=== PATIENT | female | born 1940 | race Caucasian/White ===

== ENCOUNTER 2020-06-19 11:31 | Inpatient (IN) | payer MEDICARE, BC, SELFPAY ==
[2020-06-19] VITALS (103 sets, daily range): BP systolic 105–148; BP diastolic 47–99; PULSE 62–75; RESP 14–40; TEMP 36.2–36.6; O2SAT 86–99
--- NOTE | 2020-06-19 11:45 | RT.EKG_ITS ---
APPROVED REPORT Exam: Resting ECG Patient Location: E HR:66 bpm ECG Measurements Heart Rate 66 AXIS NH 152 P 54 QRSd 118 QRS -35 QT 440 T 82 QTc 460 Conclusion Sinus rhythm. Left ventricular hypertrophy Abnormal T waves I aVL No comparisons
--- NOTE | 2020-06-19 11:56 | ED.GENADUL_ITS ---
Discharge Plan Disposition Patient Disposition: [facility] INPATIENT Condition: Improving Discharge Details Clinical Impression: Anemia, RLL pneumonia Primary Care Provider: Jf Bolanos ED Provider: Finesse Carias Home Meds and New Rx's Prescriptions: No Action ibuprofen [Motrin] 100 mg Tablet 600 mg PO PRN PRNRF: 0 Medical Decision Making 80-year-old female presents via EMS complaining of 3 days of worsening tailbone/pelvic pain and generalized weakness with difficulty walking. She has had some improvement with NSAIDs at home. She has not had a fever and states she had normal bowel movement yesterday. She is afebrile and exam does reveal a small ulceration of her coccyx. Rectal vault has soft brown stool that is faintly guaiac positive. 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 The patient's DPOA her daughter Shantelle (#[phone]) states her mother has not had medical care in at least 2 years. Differential diagnosis is broad. Does not appear clinically that the small ulceration of her coccyx would explain her malaise and weakness. Screening labs obtained. Patient is fairly profoundly anemic with a white count of 4, hematocrit 12.7, platelets 139. Sodium 131, potassium 5.7, chloride 104, bicarb 18, BUN 71, creatinine 4.0. LFTs are unremarkable, troponin negative, albumin 2.3. Patient referred for CT of the chest, abdomen, pelvis reveals right pleural effusion with underlying pneumonia of the right lower lobe. Abdomen with mild distention of the gallbladder, otherwise unremarkable for acute process. Patient consented for 2 unit blood transfusion. She is being fluid resuscitated with normal saline. Will initiate antibiotics for walking pneumonia. Question whether her coccyx and pelvic pain may be related to multiple myeloma. Will admit for further management. HPI General Mode of arrival: EMS . Date/Time Provider Initiated Documentation: 06/19/20 11:48 . Limitations to Documentation: no limitations . Information obtained by: patient and EMS . History of Present Illness 80 year old F presents to the emergency department with the chief complaint of Tailbone pain, generalized weakness, difficulty moving, described as moderate, Quality is described as dull and constant, and is localized to the pelvis. Patient reports no radiation. Patient started experiencing this day(s) and it has been constant. Rest improves symptom(s), Movement worsens symptoms . Patient notes loss of appetite; denies fever/chills. Patient did receive the following treatments prior to arrival, NSAID Related Data Home Medications Medication Instructions Recorded Confirmed ibuprofen [Motrin] 600 mg PO PRN PRN 06/19/20 06/19/20 Allergies Allergy/AdvReac Type Severity Reaction Status Date / Time Penicillins Allergy Anaphylaxsi Unverified 06/19/20 12:30 s general anestesia Allergy Anaphylaxsi Uncoded 06/19/20 12:30 s General Stated Complaint: Orthopedic SHAMIKA: 3 Review of Systems Narrative: He denies fever, cough, nausea or vomiting. States she did fall on her tailbone least 2 weeks ago. [facility] Social History Smoking/Tobacco Use Status: Never Smoking risk assessment performed?: Yes Alcohol Intake: never Drug use: Never Do you feel safe at home: Yes Do you feel safe in your relationship?: Yes Exam Narrative Exam Narrative: GEN: awake, alert, oriented 3. Pleasant, well groomed, interactive. HEAD: Normocephalic, atraumatic ENT: Mucous membranes moist, oropharynx unremarkable, External ear exam unremarkable EYES: PERRL, EOMI NECK: Full ROM, no JET, no menigismus CHEST/RESP: Nontender, clear to auscultation bilateral, no wheeze/rhonchi/rales CARDIOVASCULAR: RRR, no murmur, rub porfirio. 2+ Rad pulse bilateral ABDOMEN: Soft, nontender, no mass. +Bowel sounds. There is a small area of shallow ulceration on the patient's coccyx that is tender but without surrounding fluctuance and no erythema. Normal rectal tone, no masses, soft brown stool that is guaiac positive. EXT: Full ROM, no edema, no rash Neuro: Grossly normal neurologic exam, conversant, interactive. Psych: Speech fluent, thoughts congruent, affect normal Course Vital Signs Vital signs: Vital Signs Temperature 36.6 C 06/19/20 11:38 Pulse 75 06/19/20 11:38 Respiratory Rate 18 06/19/20 11:38 Blood Pressure 114/99 H 06/19/20 11:38 Pulse Oximetry 97 06/19/20 11:38 Temperature 36.6 C 06/19/20 11:38 Temperature Source Temporal Artery Scan 06/19/20 11:38 Pulse 75 06/19/20 11:38 Respiratory Rate 18 06/19/20 11:38 Blood Pressure 114/99 H 06/19/20 11:38 Blood Pressure Position Supine 06/19/20 11:38 Pulse Oximetry 97 06/19/20 11:38 Oxygen Delivery Method Room Air 06/19/20 11:38 Oxygen Flow Rate 0 06/19/20 11:38 Pain Level 6 06/19/20 11:38 Comment 06/19/20 11:38
[2020-06-19] MEDS: Normal Saline 1,000 ML 1000 ML IV (12:33)
[2020-06-19 12:34] LABS: Bilirubin Negative (Negative); Blood Trace-intact (Negative); Clarity Clear (Clear); Glucose Negative (Negative); Ketones Negative (Negative); Leukocyte Esterase Negative (Negative); Nitrite Negative (Negative); Specific Gravity 1.025 (1.005-1.025); Urobilinogen 0.2 EU/dL (Up TO 0.2); pH 5.5 (5-8)
[2020-06-19 12:35] LABS: Abs Immature Grans 0.09 10^3/uL (0.0-0.06); Absolute Eosinophil Count 0.02 10^3/uL (0.0-0.7); Absolute Lymphocyte Count 0.56 10^3/uL (1.2-3.4); Absolute Monocyte Count 0.43 10^3/uL (0.1-0.8); Absolute Neutrophil Count 3.12 10^3/uL (1.2-6.7); Eosinophils % 0.5; Immature Grans % 2.1; Lymphocytes % 13.3; MCH 28.2 pg (27.0-33.0); MCHC 29.1 % (32.0-36.0); MCV 96.9 fL (80-95); MPV 9.4 fL (8.0-11.0); Monocytes % 10.2; Neutrophils % 73.9; Nucleated RBC 0 %; Platelet Count 139 10^3/uL (130-400); RBC 1.31 10^6/uL (3.93-5.22); RDW 22.8 % (11.7-14.6); RDW-SD 79.9 fL; WBC 4.22 10^3/uL (4.4-10.8)
[2020-06-19 12:42] LABS: HCT 12.7 % (36.0-46.0); HGB 3.7 g/dL (11.2-15.7)
[2020-06-19 12:49] LABS: Bacteria Few HPF (Negative); C & S Indicated? Yes; Casts 10-20 Hyaline LPF (Negative); Crystals Negative HPF (Negative); Epithelial Cells Few HPF (Negative); Mucus Trace (Negative); RBC 0-2 HPF (0-2)
[2020-06-19 12:55] LABS: Anisocytosis 3+; Diff Comment RBC Morph Reviewed; Hypochromasia 3+
[2020-06-19 13:00] LABS: ALT 47 U/L (14-59); AST 47 U/L (15-37); Albumin 2.3 g/dL (3.4-5.0); Alkaline Phosphatase 71 U/L (46-116); Anion Gap 8.9 mmol/L (3-11); BUN 71 mg/dL (7-18); Bilirubin, Total 0.3 mg/dL (0.2-1.0); CO2 18.1 mmol/L (21.0-32.0); Calcium 8.1 mg/dL (8.5-10.1); Chloride 104 mmol/L (98-107); Estimated GFR 10.72 (mL/min/1.73m2); Glucose 131 mg/dL (74-106); Magnesium 2.6 mg/dL (1.8-2.4); Potassium 5.7 mmol/L (3.5-5.1); Sodium 131 mmol/L (136-145); Total Protein 11.9 g/dL (6.4-8.2)
[2020-06-19 13:01] LABS: Troponin I < 0.05 ng/mL (<0.06)
--- NOTE | 2020-06-19 13:30 | DI.CT_ITS ---
EXAM: CT CHEST/ABD/PEL WO CLINICAL HISTORY: PELVIS, TAILBONE PAIN. TECHNIQUE: Imaging Protocol: Axial computed tomography images with coronal and sagittal reformatted images were created and reviewed CONTRAST MATERIAL: Noncontrast COMPARISON: No exams were available for comparison FINDINGS: The exam is limited by respiratory motion. CHEST: Thyroid: Unremarkable Tracheobronchial tree: Patent where visualized. Mediastinum and Madhuri: No dominant adenopathy or fluid collection. Pulmonary parenchyma: There are increased densities at the right lung base suspicious for pneumonia. Pleura: No pneumothorax. Small right pleural effusion. Lymph nodes: Within normal limits. Heart: Dilated. Mild coronary artery calcifications. Mild aortic calcification. No aortic aneurysm . Bones: The bones appear osteoporotic. There are multiple mid to lower thoracic compression fractures . ABDOMEN: Liver: Normal density. No measurable mass. Gallbladder and biliary tract: The gallbladder appears somewhat distended and there is a question of wall thickening. No radiodense calculus or biliary dilation. Pancreas: Normal density, no abnormal calcifications or inflammatory process. Spleen: Normal. Kidneys: Normal size, contour and axis. No radiodense stones or obstructive uropathy. Bilateral cyst s. No perinephric collection. No suspicious masses seen. Adrenal glands: No masses seen. Aorta: Abdominal portion non-dilated. Lymph nodes: Within normal limits. PELVIS: Bladder: Nearly empty and not well evaluated. Bowel: Extensive diverticulosis. No evidence of diverticulitis. Normal quantity of stool. Normal-a ppearing appendix. No obstruction or bowel wall thickening. Peritoneal cavity: Small amount of fluid is seen in the pelvis. Bones: Bones appear osteoporotic. Moderate compression fracture of L1. Mild compression fracture of L3, both of which appear old. No acute spine or pelvic fractures are seen. Reproductive organs: Status post hysterectomy. IMPRESSION: Small right pleural effusion. Question of right lower lobe pneumonia versus significant atelectasis. Distended gallbladder with question of thickened gallbladder wall. Ultrasound could be performed for further evaluation. Severe diverticulosis without evidence of diverticulitis. RADIATION DOSE DELIVERED: 1,267.99mGy.cm Total DLP DATA REPOSITORY: All CT scans at this facility are submitted to the National Radiology Data Registry (NRDR) Dose Index Registry (DIR) with the [employer] (ACR). RADIATION OPTIMIZATION: All CT scans at this facility use at least one of these dose optimization te chniques: automated exposure control; mA and/or kV adjustment per patient size (includes targeted exa ms where dose is matched to clinical indication); or iterative reconstruction.
--- NOTE | 2020-06-19 16:20 | HPE_ITS ---
Date of service: 06/19/20 Time of Service: 16:20 Assessment and Plan Assessment and plan (1) Anemia: Status: Chronic Assessment and plan: Multifactorial. I suspect that she has a chronic anemia secondary to her multiple myeloma however given her recent use of NSAIDs and slightly heme positive stool she may have some chronic GI bleeding going on. Her last labs were on iron studies and B12 and folate levels off of her admission labs. Patient has consented to blood transfusion she is now on her se cond unit of blood but most likely will need a third unit of packed red cells. I have put her on low-dose Nexium for GI protection. Should get a repeat hemoglobin tonight and if it is less than 7 g she will get another unit of blood. Qualifiers: Anemia type: unspecified type Qualified Code(s): D64.9 - Anemia, unspecified (2) Heme + stool: Status: Acute Assessment and plan: As above. (3) Dehydration: Status: Acute Assessment and plan: Patient received a liter of saline in the emergency department but now has had 2 units of packed red blood cells. She will likely need a third unit of PRBC. I will repeat her BMP in the a.m. (4) Acute kidney injury (nontraumatic): Status: Acute Assessment and plan: secondary to above. repeat BMP and monitor urine oupu t as she is transfused (5) Chronic renal insufficiency: Status: Suspected Assessment and plan: I suspect that she has CKD d/t MM. Will get renal US on Monday. (6) Essential hypertension: Status: Acute Assessment and plan: patient has hx of htn however she has not been on any meds. BP is not a problem now but may rise after transfusion at which time she may need medications for HTN. (7) Multiple myeloma: Status: Acute Assessment and plan: labs ordered for staging of her MM. I am not sure that she is going to want extensive workup. She would need BM biopsy before treatment. Qualifiers: Multiple myeloma remission status: not in remission Qualified Code(s): C90.00 - Multiple myeloma not having achieved remission (8) Atelectasis: Status: Acute Assessment and plan: Dr. Carias listed her dx as walking pneumonia, however the patient does not have a fever, cough, hypoxemia nor purulent sputum. I think her CT is more consistent w/ atelectasis and effusion probably d/t her bed confinement. I am electing to not begin antibiotics unless she becomes febrile. I think early mobilization, good pulmonary exercises i.e. I.S. will help. She is not actively wheezing and therefore does not need bronchodilators. (9) Decubitus ulcer of coccygeal region: Status: Acute Assessment and plan: I think a barrier cream or Mepilex will protect the site. Last wound care nurse to see her in the morning. Early mobilization will help. 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 She presents to the emergency room according to her because of 3-day history of worsening pain over her tailbone. However she is also had gene ralized weakness and difficulty walking and has been previous bedbound for the past week. She has been taken NSAIDs with some improvement in her pain. Patient is a poor historian and is fixated on her history of polio. Patient reportedly has been afebrile and patient reports having had normal bowel movement yesterday. However rectal exam in the emergency department showed soft brown stool that was faintly guaiac positive. Laboratory work-up showed that she was in acute renal failure and severely anemic. CMP demonstrated elevated BUN of 71 and creatinine of 4.0 and an elevated potassium of 5.7. Calcium level is normal at 8.1. Magnesium is high at 2.6. Her anion gap is normal at 8.9. LFTs were within normal limits. Troponin was less than 0.05. Her total protein was high at 11.9 with a low albumin of 2.3. CBC demonstrated profound anemia with a hemoglobin of 3.7 g and hematocrit 12.7%. Her MCV was elevated at 96.9 with an RDW 22.8. Platelet count was normal at 139,000. WBCs were mildly depressed at at 4200. CT imaging of her chest abdomen pelvis without contrast demonstrated small right pleural effusion and questionable right lower lobe pneumonia versus atelectasis. She has a distended gallbladder with questionable thickening of her gallbladder wall. She has severe diverticulosis without diverticulitis. She had no mediastinal or hilar adenopathy. She has mild coronary artery calcifications with no aortic aneurysm. Bones appear to be osteoporotic and she has multiple mid to lower thoracic compression fractures as well as moderate compression fracture L1 and L3 that appear to be old. Bones of the pelvis appear to be osteoporotic but no acute spinal or pelvic fractures were seen. Reproductive organs show she is status post hysterectomy. Dr. Finesse Carias, emergency room physician, discussed her case with her daughter Shantelle at #[phone], who stated that her mother is not had any medical care in the past 2 years. Daughter is her DPOA. Patient did consent to 2 units of blood transfusion. She was given a liter of normal saline in the emergency department for her azotemia. She received 1 unit of blood while in the emergency department and is now starting on her second unit of blood. Is unclear whether her coccygeal pain is secondary to multiple myeloma involvement versus osteoporosis and referred pain from her spinal compression fractures. She does have a small superficial ulceration over the coccyx. Review of Systems Unobtainable due to mental status [facility] Medical History (Updated 06/19/20 @ 18:50 by Chris Corrales) Chronic renal insufficiency Essential hypertension Multiple myeloma Surgical History (Updated 06/19/20 @ 18:28 by Chris Corrales) Status post total hysterectomy and bilateral salpingo-oophorectomy Performed at age 28 for allegedly ovarian cancer Social History Smoking/Tobacco Use Status: Never Smoking risk assessment performed?: Yes Alcohol Intake: never Drug use: Never Do you feel safe at home: Yes Do you feel safe in your relationship?: Yes Meds Home Medications and Allergies Home Medications Medication Instructions Recorded Confirmed Type ibuprofen [Motrin] 600 mg PO PRN PRN 06/19/20 06/19/20 History Allergies Allergy/AdvReac Type Severity Reaction Status Date / Time Penicillins Allergy Anaphylaxsi Unverified 06/19/20 12:30 s general anestesia Allergy Anaphylaxsi Uncoded 06/19/20 12:30 s Exam Narrative Exam Narrative: Elderly female lying in bed in no acute distress. HEENT is remarkable for dry mucous membranes. Neck is supple nontender no JVD normal carotid pulses Lungs are clear anteriorly but posteriorly she has some basilar rales bilaterally right more so than the left. No rhonchi or wheezing. Heart regular rate and rhythm no appreciable murmur rub or gallop. Abdomen soft nondistended normal active bowel sounds. Spine tender over the coccyx. Skin with multiple areas of seborrheic keratosis. Coccyx with a superficial skin ulceration with no purulent drainage. Neuro exam patient seems to be poor historian and perhaps may have some mild dementia or at least mild cognitive impairment. She has no dysarthric speech no facial asymmetry no gross visual field deficits . She has normal range of motion of her hands and arms. She is seems to move her legs well although I did not check strength in her feet. Sensory exam grossly intact to light touch. Results Labs Result diagrams: 06/19/20 12:30 06/19/20 12:30 Labs: Laboratory Results - last 24 hr 06/19/20 06/19/20 06/19/20 12:03 12:03 12:25 WBC Cancelled RBC Cancelled Hgb Cancelled Hct Cancelled MCV Cancelled MCH Cancelled MCHC Cancelled RDW Cancelled Plt Count Cancelled MPV Cancelled Immature Gran % Cancelled Neutrophils % Cancelled Band Neutrophils % Cancelled Lymphocytes % Cancelled Atypical Lymphs % Cancelled Monocytes % Cancelled Eosinophils % Cancelled Basophils % Cancelled Metamyelocytes % Cancelled Myelocytes % Cancelled Promyelocytes % Cancelled Other Cells % Cancelled Nucleated RBC % Cancelled Absolute Neutrophils Cancelled Absolute Lymphocytes Cancelled Absolute Monocytes Cancelled Absolute Eosinophils Cancelled Absolute Basophils Cancelled RBC Morphology Cancelled Polychromasia Cancelled Hypochromasia Cancelled Poikilocytosis Cancelled Basophilic Stippling Cancelled Anisocytosis Cancelled Microcytosis Cancelled Macrocytosis Cancelled Spherocytes Cancelled Tear Drop Cells Cancelled Ovalocytes Cancelled Stomatocytes Cancelled Ryder-Rose Bud Bodies Cancelled [place] Cells/Echinocytes Cancelled Acanthocytes (Spur) Cancelled Schistocytes Cancelled Sodium Cancelled Potassium Cancelled Chloride Cancelled Carbon Dioxide Cancelled Anion Gap Cancelled BUN Cancelled Creatinine Cancelled Estimated GFR/1.73 m2 Cancelled Glucose Cancelled Calcium Cancelled Magnesium Cancelled Total Bilirubin Cancelled AST Cancelled ALT Cancelled Alkaline Phosphatase Cancelled Troponin I Cancelled Total Protein Cancelled Albumin Cancelled Urine Color Yellow Urine Clarity Clear Urine pH 5.5 Ur Specific Prentiss 1.025 Urine Protein 30 H Urine Ketones Negative Urine Blood Trace-intact H Urine Nitrite Negative Urine Bilirubin Negative Urine Urobilinogen 0.2 Ur Leukocyte Esterase Negative Urine RBC 0-2 Urine WBC 10-20 H Ur Epithelial Cells Few Urine Crystals Negative Urine Bacteria Few Urine Casts 10-20 hyaline Urine Mucus Trace Ur Culture Indicated? Yes Urine Glucose Negative Patient ABO/Rh Antibody Screen Crossmatch 06/19/20 06/19/20 06/19/20 12:30 12:30 12:55 WBC 4.22 L RBC 1.31 L Hgb 3.7 L* Hct 12.7 L* MCV 96.9 H MCH 28.2 MCHC 29.1 L RDW 22.8 H Plt Count 139 MPV 9.4 Immature Gran % 2.1 Neutrophils % 73.9 Band Neutrophils % Lymphocytes % 13.3 Atypical Lymphs % Monocytes % 10.2 Eosinophils % 0.5 Basophils % 0.0 Metamyelocytes % Myelocytes % Promyelocytes % Other Cells % Nucleated RBC % 0 Absolute Neutrophils 3.12 Absolute Lymphocytes 0.56 L Absolute Monocytes 0.43 Absolute Eosinophils 0.02 Absolute Basophils 0.00 RBC Morphology See below Polychromasia Hypochromasia 3+ Poikilocytosis Basophilic Stippling Anisocytosis 3+ Microcytosis Macrocytosis Spherocytes Tear Drop Cells Ovalocytes Stomatocytes Ryder-Rose Bud Bodies Catarina Cells/Echinocytes Acanthocytes (Spur) Schistocytes Sodium 131 L Potassium 5.7 H Chloride 104 Carbon Dioxide 18.1 L Anion Gap 8.9 BUN 71 H Creatinine 4.00 H* Estimated GFR/1.73 m2 10.72 Glucose 131 H Calcium 8.1 L Magnesium 2.6 H Total Bilirubin 0.3 AST 47 H ALT 47 Alkaline Phosphatase 71 Troponin I < 0.05 Total Protein 11.9 H Albumin 2.3 L Urine Color Urine Clarity Urine pH Ur Specific Prentiss Urine Protein Urine Ketones Urine Blood Urine Nitrite Urine Bilirubin Urine Urobilinogen Ur Leukocyte Esterase Urine RBC Urine WBC Ur Epithelial Cells Urine Crystals Urine Bacteria Urine Casts Urine Mucus Ur Culture Indicated? Urine Glucose Patient ABO/Rh O Positive Antibody Screen Negative Crossmatch See Detail Last Vital Signs Temp 36.6 C 06/19/20 15:15 Pulse 69 06/19/20 15:33 Resp 19 06/19/20 15:40 BP 139/74 06/19/20 15:33 Pulse Ox 94 06/19/20 15:40 COVID-19 Screening Have you, or household traveled for leisure in last 14 days?: No Had IN PERSON contact w/suspected or confirmed C-19 person: No
[2020-06-19] MEDS: Normal Saline Flush 10 ML SYR IVP ×3 (18:14→23:55)
[2020-06-19 21:39] LABS: HCT 18.7 % (36.0-46.0)
[2020-06-19 23:08] LABS: Iron 458 ug/dL (50-170)
[2020-06-19 23:34] LABS: Ferritin 548 ng/mL (8-252); Folate 11.6 ng/mL (8.6-20.0); Vitamin B12 220 pg/mL (193-986)
[2020-06-19] MEDS: Normal Saline 1,000 ML 30 ML IV (23:58)
[2020-06-20] VITALS (38 sets, daily range): BP systolic 106–136; BP diastolic 50–66; PULSE 0–79; RESP 11–33; TEMP 36.1–36.6; O2SAT 78–96
[2020-06-20 02:13] LABS: COVID-19 RT-PCR UVMMC Result Negative (Negative)
[2020-06-20 07:04] LABS: Abs Immature Grans 0.03 10^3/uL (0.0-0.06); Absolute Eosinophil Count 0.03 10^3/uL (0.0-0.7); Absolute Lymphocyte Count 0.41 10^3/uL (1.2-3.4); Absolute Monocyte Count 0.49 10^3/uL (0.1-0.8); Absolute Neutrophil Count 2.84 10^3/uL (1.2-6.7); Eosinophils % 0.8; Immature Grans % 0.8; Lymphocytes % 10.8; MCH 28.1 pg (27.0-33.0); MCHC 31.6 % (32.0-36.0); MCV 89.2 fL (80-95); MPV 9.4 fL (8.0-11.0); Monocytes % 12.9; Neutrophils % 74.7; Nucleated RBC 1 %; Platelet Count 133 10^3/uL (130-400); RBC 2.31 10^6/uL (3.93-5.22); RDW 22.2 % (11.7-14.6); RDW-SD 69.3 fL
[2020-06-20 07:22] LABS: Anion Gap 8.2 mmol/L (3-11); BUN 70 mg/dL (7-18); CO2 17.8 mmol/L (21.0-32.0); CREATININE 3.47 mg/dL (0.55-1.02); Chloride 108 mmol/L (98-107); Estimated GFR 12.63 (mL/min/1.73m2); Glucose 89 mg/dL (74-106); LDH 208 U/L (81-234); Sodium 134 mmol/L (136-145)
[2020-06-20 07:32] LABS: HGB 6.5 g/dL (11.2-15.7)
[2020-06-20 07:33] LABS: Anisocytosis 2+; Diff Comment RBC Morph Reviewed; HCT 20.6 % (36.0-46.0)
[2020-06-20 07:34] LABS: Hypochromasia 1+; Polychromasia Present
[2020-06-20] MEDS: Esomeprazole 20 MG CAPCR PO (08:19)
[2020-06-20] MEDS: Docusate Sodium 100 MG CAP PO (11:16)
[2020-06-20] MEDS: traMADol 50 MG TAB 25 MG PO (11:17)
--- NOTE | 2020-06-20 12:37 | PT.INIE ---
Date of service: 06/20/20 Time of Service: 12:00 PT Notes Visit Reasons: SEVERE ANEMIA, TRACY ON CKD, MM Inpatient Physical Therapy Evaluation Date: 06/20/2020 Referring Doctor: Chris Corrales MD PT Orders: PT CONSULT: eval and treat Precautions: Fall, standard Patient Profile/Admitting Diagnosis: Patient presented to [facility] ER on 06/19/2020, with complaint of severe coccygeal and tailbone pain and been immobile x2 weeks, bed ridden due to progressive weakness. Medical work-up suggest anemia, post polio syndrome, kidney disease/failure, coccygeal ulcer, and mulitple myoloma. She has become very deconditioned and now non-functional. She has not had medical care for 2 years. PMHX: Medical History (Updated 06/19/20 @ 18:50 by Chris Corrales) Chronic renal insufficiency Essential hypertension Multiple myeloma Surgical History (Updated 06/19/20 @ 18:28 by Chris Corrales) Status post total hysterectomy and bilateral salpingo-oophorectomy Performed at age 28 for allegedly ovarian cancer Social History/Home Situation: Patient reporting that she lives in a private home, with her . She is unclear on the way out of her home. She explains that normally she would need some assist to transfer from her bed to standing a walker, and then she would reside in a chair all day. Approximately 2 weeks ago, her was unable to lift her out of her chair due to her weak condition, she has been bedridden x2 weeks. Current Functional Limitations: Max assist for all bed mobility, mod assist of 1 for supine to sit, mod assist of 1 sit to supine, unable to stand or ambulate due to weakness Equipment Owned/DME: Walker, otherwise patient unclear. Poor historian. Subjective: Patient reporting that she had been immobile for 2 weeks due to her weakness. Has no response when questioned why she did not present to hospital earlier. Her and 1 time was able to transfer her so she could sit in her chair all day, leaving her bedroom, but she got too weak and he was unable to lift her. She states that she suffers from a lot of pain related to her post polio syndrome, but her degree of weakness bothers her more than her pain. Does have coccygeal pain Objective: General Observation: Lying in bed, head of bed 45 degree angle. Lee, bilateral IVs with blood transfusion, O2 via nasal cannula 2 L Mental Status: Confused on day of the week, knows her year and location. She answers all questions clearly and cognitively Pain: 9/10, coccyx region. Currently being treated for pressure ulcer, managed by nursing. Vital Signs: BP 125/54, HR 95, O2 sat ranging 93 to 94% on 2 L of O2 ROM: Right Upper Extremity: Actively achieving about 100 degrees of bilateral shoulder flexion and scaption, passively increases to 120 degrees, elbows and wrist digits are WNL Left Upper Extremity: As above Right Lower Extremity: Bilateral hip flexion 100 degrees to 90 degrees, IR 10 degrees at the hip 30 degrees ER at the hips. Ankles are grossly WNL, bilateral hip abduction about 30 degrees Left Lower Extremity: As above Strength: Right Upper Extremity: Grossly 3+/5 throughout Left Upper Extremity: Grossly 3+/5 throughout Right Lower Extremity: Grossly 2/5 throughout, with the exception of quad it 3/5 lacking about 20 degrees of terminal knee extension due to fatigue. Dorsiflexion plantarflexion 3 -/5 Left Lower Extremity: As above Sensation: Intact Bed Mobility/Transfers: Mod assist x1 from supine to sit bed, 45 degree HOB Mod assist x1 from sit to supine Max assist of 2 for bed mobility Unable to attempt sit to stand due to weakness Gait: Unable due to weakness Balance: Static Sitting: Poor Dynamic Sitting: Poor Static Standing: Poor Dynamic Standing: Poor Special Tests: Mobility Limitations Standardized Measure [facility] AM-PAC 6 clicks Basic Mobility Inpatient Short Form: 100% disability Informed Consent/Education: Patient instructed in purpose of PT consult and plan of care. Assessment: Patient is a 80 year old female referred to physical therapy services with the diagnosis of anemia in the setting of chronic multiple myeloma, post polio syndrome, unmanaged medical care, coccygeal ulcer, kidney dysfunction. Patient presents with clinical signs and symptoms consistent with referred diagnosis allowing for global weakness and deconditioning limiting her functional capabilities that dependent on another for all bed mobility, transfers, and unable to attempt any type of standing or ambulation due to her severe weakness. AMPAC score 100%. She requires skilled PT intervention to improve her overall strength in hopes of improving her functional capabilities requiring less assistance, and hopefully returning her to her home environment. However, length of treatment will likely require SNF to achieve safe level of strength and conditioning to function more independently Patient is assessed as a High 04752 complexity based on the following: History: See comorbidities Examination: See impairments and functional rotations as outlined in assessment Presentation: Unstable Decision Making: Hard Goals: Goals X1 week 1. Supine-Sit close supervision, HOB 30 degrees 2. Sit-Supine close supervision 3. Sit-Stand min assist x1, RW 4. Stand-Sit min assist x1, RW 5. Bed-Chair min assist x1, RW 6. Chair-Bed min assist x1, RW 7. Gait 5 steps, RW, contact-guard 8. Independent with home exercise program 9. Balance good with static phase, fair with dynamic tasks with W for weightbearing activities Plan of Care/Treatment Plan: 1-2x/day, 7 days/week x 1 week. Plan of care has been reviewed with the CAMP COORDINATOR providing the service under Physical Therapy direction. Initiate Physical Therapy intervention for strengthening, bed mobility, transfers, gait, stairs, balance training, use of assistive device. DISCHARGE RECOMMENDATIONS: SNF TREATMENT CODE/TIME: 30 min, [id number]
--- NOTE | 2020-06-20 13:12 | W.PM.PROGNOT ---
Date of Service Date of service: 06/20/20 Time of Service: 13:13 Assessment and Plan Assessment and plan (1) Decubitus ulcer of coccygeal region: Status: Acute Assessment and plan: Wound care following. Qualifiers: Pressure injury stage: stage 1 Qualified Code(s): L89.151 - Pressure ulcer of sacral region, stage 1 (2) [id number] kidney injury: Status: Acute Assessment and plan: Creatinine mildly improved from 4.0 to 3.4. IV NS at 75ml/hr. Monitor (3) Essential hypertension: Status: Acute Assessment and plan: Well controlled. No current meds. (4) Multiple myeloma: Status: Acute Assessment and plan: SPEP/UPEP ordered. LDH 208; normal. Hold previously ordered bone scan. Pt doesn't believe she could tolerate this. She is not keen on any further current w/u but will f/u as outpt with [facility] heme/onc. Qualifiers: Multiple myeloma remission status: not in remission Qualified Code(s): C90.00 - Multiple myeloma not having achieved remission (5) Anemia: Status: Chronic Assessment and plan: Heme + stool. GI loss and likely bone marrow infussiciency. WBC also low. Platelets low normal. Not iron deficient. After 3 units RBCs her Hgb improved from 3.7 to 6.5. 4th unit of RBCs infusing; H/H pending after infusion completed. Monitor. Qualifiers: Anemia type: unspecified type Qualified Code(s): D64.9 - Anemia, unspecified Subjective Subjective Patient reports: no new complaints, still having pain (hips/pelvis with movement in bed.), tolerating a regular diet, shortness of breath and afebrile; denies nausea and vomiting Interval history since last seen: Feels generally weak. Exam Const General: cooperative and no acute distress Nutritional Appearance: overweight Orientation: alert and oriented x3 Resp Effort & Inspection: normal respiratory effort Auscultation: clear to auscultation bilaterally Cardio Rate: regular rate Rhythm: regular rhythm Heart Sounds: S1 normal and S2 normal GI Palpation: soft and nontender Auscultation: normal bowel sounds Skin Lesions: lesion noted (coccyx; Mepilex in place) Extrem General: no calf tenderness and edema Laterality: bilateral (Nonpitting) Objective Last Vital Signs Temp 36.5 C 06/20/20 11:11 Pulse 74 06/20/20 11:11 Resp 21 06/20/20 11:11 BP 125/54 L 06/20/20 11:11 Pulse Ox 93 06/20/20 11:11 Laboratory Results - last 24 hr 06/19/20 06/19/20 06/19/20 12:30 12:30 12:55 WBC RBC Hgb Hct MCV MCH MCHC RDW Plt Count MPV Immature Gran % Neutrophils % Lymphocytes % Monocytes % Eosinophils % Basophils % Nucleated RBC % Absolute Neutrophils Absolute Lymphocytes Absolute Monocytes Absolute Eosinophils Absolute Basophils RBC Morphology Polychromasia Hypochromasia Anisocytosis Sodium Potassium Chloride Carbon Dioxide Anion Gap BUN Creatinine Estimated GFR/1.73 m2 Glucose Uric Acid Calcium Iron 458 H Ferritin 548 H Lactate Dehydrogenase Vitamin B12 220 Folate 11.6 SARS-CoV-2 (PCR) Nasopharyn COVID-19 PCR Ref Test Perform Site Patient ABO/Rh O Positive Antibody Screen Negative Crossmatch See Detail 06/19/20 06/19/20 06/20/20 15:15 21:20 06:35 WBC RBC Hgb 6.0 L* D Hct 18.7 L* D MCV MCH MCHC RDW Plt Count MPV Immature Gran % Neutrophils % Lymphocytes % Monocytes % Eosinophils % Basophils % Nucleated RBC % Absolute Neutrophils Absolute Lymphocytes Absolute Monocytes Absolute Eosinophils Absolute Basophils RBC Morphology Polychromasia Hypochromasia Anisocytosis Sodium 134 L Potassium 5.0 Chloride 108 H Carbon Dioxide 17.8 L Anion Gap 8.2 BUN 70 H Creatinine 3.47 H Estimated GFR/1.73 m2 12.63 Glucose 89 Uric Acid 12.0 H Calcium 8.0 L Iron Ferritin Lactate Dehydrogenase 208 Vitamin B12 Folate SARS-CoV-2 (PCR) Negative Nasopharyn COVID-19 PCR Not Applicable Ref Test Perform Site [facility] lab Patient ABO/Rh Antibody Screen Crossmatch 06/20/20 06:35 WBC 3.80 L RBC 2.31 L Hgb 6.5 L* Hct 20.6 L* MCV 89.2 D MCH 28.1 MCHC 31.6 L RDW 22.2 H Plt Count 133 MPV 9.4 Immature Gran % 0.8 Neutrophils % 74.7 Lymphocytes % 10.8 Monocytes % 12.9 Eosinophils % 0.8 Basophils % 0.0 Nucleated RBC % 1 Absolute Neutrophils 2.84 Absolute Lymphocytes 0.41 L Absolute Monocytes 0.49 Absolute Eosinophils 0.03 Absolute Basophils 0.00 RBC Morphology See below Polychromasia Present Hypochromasia 1+ Anisocytosis 2+ Sodium Potassium Chloride Carbon Dioxide Anion Gap BUN Creatinine Estimated GFR/1.73 m2 Glucose Uric Acid Calcium Iron Ferritin Lactate Dehydrogenase Vitamin B12 Folate SARS-CoV-2 (PCR) Nasopharyn COVID-19 PCR Ref Test Perform Site Patient ABO/Rh Antibody Screen Crossmatch
--- NOTE | 2020-06-20 14:04 | PDOC.CMIN ---
- If Service Date Differs Date of service: 06/20/20 Time of Service: 14:04 Care Management Initial Assess REASON FOR HOSPITALIZATION:: Severe Anemia, TRACY and CKD and Multiple Myoloma PAST MEDICAL HISTORY/PAST SURGICAL HISTORY:: Chronic renal insufficiency. Essential hypertension. Multiple myeloma. Surgical History (Updated 06/19/20 @ 18:28 by Chris Corrales). Status post total hysterectomy and bilateral salpingo-oophorectomy. Performed at age 28 for allegedly ovarian cancer PREVIOUS FUNCTIONAL STATUS/SOCIAL/FAMILY SUPPORTS:: Meghana lives with her spouse and her youngest daughter who provide her care at home. CURRENT FUNCTIONAL STATUS:: Meghana is alert and engaged with CM, she is short of breath during assessment. She states she is not willing to go to a rehab faciility she states her youngest daughter cares for her at home and is working from home to be able to continue to support her. She does think that she will need new home health services for PT and OT. ADVANCE DIRECTIVES:: CM unable to find any on file, will offer patient to complete when she is more medically stable Has patient been provided with info about the portal/API?: No Did the patient sign up for the portal?: No CODE STATUS:: DNI INSURANCE COVERAGE / FINANCIAL ISSUES:: Medicare and BCBS CURRENT HOME/COMMUNITY SERVICES/EQUIPMENT:: Pateint reports no current servcies CM will verify assessment with family due to patients difficulty with shortness of breath during assessment. PRIMARY CARE PHYSICIAN:: POTENTIAL DISCHARGE NEEDS:: New referral to home health including nursing, PT and OT. PATIENT/FAMILY EDUCATION NEEDS:: Discharge edcuation, limitations and follow up plan of care. TRANSPORTATION:: Via private car with family. PLAN:: Meghana disposition to be determined. PT is recomending a skilled level of care prior to returning home, however at this point she declines. Wound consult today. Meghana will need new home health for nursing, PT and OT. CM to continue to assess needs for discharge and coordination disposition.
--- NOTE | 2020-06-20 14:09 | WOUNDCONS ---
- If Service Date Differs Date of service: 06/20/20 Time of Service: 13:30 Wound Initial Evaluation Narrative: Patient is an 80 yof patient who is seen here for weakness and anemia, after 3 units of prbc H&H is still 6.5 with a 4th unit administered. She has a hx of Polio, and multiple Myeloma. She presented here after several days of weakness and sacral /coccyx pain. H&P, allergies, and other pertinent information were reviewed. - Wound Left Lumbar/Sacral Wound Type: Pressure Ulcer Pressure Ulcer Stage: II Wound General Appearance: Reddened, Bleeding, Unapproximated Wound Bed Greatest Portion: Red (Granulation) Wound Surrounding Tissue Appearance: [place] Percent of Wound Bed Granulated/Red: 100 Wound Length: 0.4 cm Wound Width: 0.7 cm Wound Depth: 0.1 cm Wound Drainage Amount: Minimal Wound Drainage Odor: None/Absent Wound Drainage Description: Bloody Wound Topical Solution/Irrigant: Saline Irrigant Wound Debridement Method: Mechanical Wound Debridement Result: Healthy Tissue Revealed Wound Debridement Amount of Tissue Removed: Minimal Right Lumbar/Sacral Wound Type: Pressure Ulcer Pressure Ulcer Stage: II Wound General Appearance: Reddened, Draining, Bleeding, Unapproximated Wound Bed Greatest Portion: Red (Granulation) Wound Surrounding Tissue Appearance: [place] Percent of Wound Bed Granulated/Red: 100 Wound Length: 0.3 cm Wound Width: 0.5 cm Wound Depth: 0.1 cm Wound Drainage Amount: Minimal Wound Drainage Odor: None/Absent Wound Drainage Description: Bloody Wound Topical Solution/Irrigant: Saline Irrigant Wound Debridement Method: Mechanical Wound Debridement Result: Healthy Tissue Revealed Wound Debridement Amount of Tissue Removed: Minimal - Circulation, Sensation, Motion Edema Degree: 2+ Peripheral Pulse Strength: Weak Capillary Refill: Less than 3 seconds Sensation Description: Within Normal Limits, Itching Skin Temperature: Warm Skin Color: Pale (Lab draw after 4th unit of blood has not returned yet) - WILBERTO Pulse: 0 Comment:: not applicable - Pain Pain Level: 8 Pain Scale Used: Visual Analog Scale 0-10 Pain Description: Sharp (Tramadol was started today, with modest effect noted at this point) Pain Duration/Frequency: With Movement - Treatment/Dressing Change Topicals/Ointments: None Cleanse With: Saline Dressing Types: Mepilex w/Border - Recomendation Recomendation:: Cleanse with normal saline, then pat dry. Apply Mepilex sacral over wounds for protection. Change every 3 days or PRN if soiled. Measure wound with dressing change. Offload pressure from sacral coccyx area. Physcian/Nurse Practioner Notified: Yes (DR. Eris Drake) Treatment Time - Time Total Time Spent with Patient: 30 minutes - Patient Will be Seen Weekly Treatment: 2x/wk - For: For:: 1 week
--- NOTE | 2020-06-20 15:32 | SUR.INTRAOP ---
AT 1431 it was pointed out that a hr of 0 was entered on this patient by this nurse. This is some form of error, as vs on this patient were not recorded by this nurse
[2020-06-20 15:44] LABS: HCT 23.4 % (36.0-46.0); HGB 7.3 g/dL (11.2-15.7)
[2020-06-20] MEDS: Timolol 0.5% 5 ML BTL OU (20:37)
[2020-06-20 22:15] LABS: PROTEIN 92.3 mg/dL (0.0-11.9)
[2020-06-20 22:20] LABS: Creatinine,24hr Ur 0.64 g/24hr (0.60-1.80); Total Volume 800 ml
[2020-06-20 22:21] LABS: TOTAL PROTEIN,URINE TIMED 738.4 mg/24hr (0.0-149.1); Total Volume 800 ml
[2020-06-21] VITALS (30 sets, daily range): BP systolic 100–132; BP diastolic 58–74; PULSE 66–80; RESP 14–38; TEMP 33–36.3; O2SAT 89–97
[2020-06-21 07:10] LABS: Abs Immature Grans 0.03 10^3/uL (0.0-0.06); Absolute Eosinophil Count 0.04 10^3/uL (0.0-0.7); Absolute Lymphocyte Count 0.48 10^3/uL (1.2-3.4); Absolute Monocyte Count 0.52 10^3/uL (0.1-0.8); Absolute Neutrophil Count 3.13 10^3/uL (1.2-6.7); Immature Grans % 0.7; Lymphocytes % 11.4; MCH 28.3 pg (27.0-33.0); MCHC 31.1 % (32.0-36.0); MCV 91.1 fL (80-95); MPV 9.4 fL (8.0-11.0); Monocytes % 12.4; Neutrophils % 74.5; Nucleated RBC 1 %; Platelet Count 129 10^3/uL (130-400); RBC 2.47 10^6/uL (3.93-5.22); RDW 21.1 % (11.7-14.6)
[2020-06-21 07:13] LABS: Anion Gap 8.3 mmol/L (3-11); BUN 66 mg/dL (7-18); CO2 17.7 mmol/L (21.0-32.0); CREATININE 2.96 mg/dL (0.55-1.02); Calcium 7.8 mg/dL (8.5-10.1); Chloride 108 mmol/L (98-107); Estimated GFR 15.17 (mL/min/1.73m2); Glucose 104 mg/dL (74-106); Potassium 4.3 mmol/L (3.5-5.1); Sodium 134 mmol/L (136-145)
[2020-06-21 07:24] LABS: HCT 22.5 % (36.0-46.0)
[2020-06-21] MEDS: Acetaminophen 325 MG TAB PO ×2 (08:26→17:44)
[2020-06-21] MEDS: Esomeprazole 20 MG CAPCR PO (08:29)
[2020-06-21] MEDS: Polyethylene Glycol 3350 17 GM PACKET PO (08:29)
[2020-06-21] MEDS: Timolol 0.5% 5 ML BTL OU ×2 (08:29→19:54)
--- NOTE | 2020-06-21 10:22 | PHA.REVIEW ---
Pharmacy Admission Review - Admission Clinical Review (Last Updated 06/19/20 @ 18:28 by Chris Corrales) [id number] kidney injury (Acute) Decubitus ulcer of coccygeal region (Acute) Dehydration (Acute) Atelectasis (Acute) Acute kidney injury (nontraumatic) (Acute) Essential hypertension (Acute) Multiple myeloma (Acute) Heme + stool (Acute) Penicillins Allergy (Unverified 06/19/20 12:30) Anaphylaxsis general anestesia Allergy (Uncoded 06/19/20 12:30) Anaphylaxsis Height 5 ft 2 in Weight 77.4 kg - Renal Dosing Renal Dosing: BUN 66 mg/dL (7-18) H 06/21/20 06:45 Creatinine 2.96 mg/dL (0.55-1.02) H 06/21/20 06:45 Medications needing adjustments: Reviewed List of meds needing interventions: eCrCl 12 ml/min -- all meds ok - Anticoagulation Anticoagulation: Hgb 7.0 g/dL (11.2-15.7) L 06/21/20 06:45 Hct 22.5 % (36.0-46.0) L 06/21/20 06:45 Plt Count 129 10^3/uL (130-400) L 06/21/20 06:45 Creatinine 2.96 mg/dL (0.55-1.02) H 06/21/20 06:45 DVT Prohphylaxis: N/A Therapeutic Anticoagulation: N/A (anemia, heme pos stool) - Opiate Usage Evaluate Pain Scale/Pains Meds: Reviewed (low dose of tramadol - 15mg q12h prn) Scheduled Bowel Reg ordered if on Opiates?: Yes (PRN orders) - Relevant Labs Sodium 134 mmol/L (136-145) L 06/21/20 06:45 Potassium 4.3 mmol/L (3.5-5.1) 06/21/20 06:45 Chloride 108 mmol/L (98-107) H 06/21/20 06:45 Magnesium 2.6 mg/dL (1.8-2.4) H 06/19/20 12:30 Electrolytes, C-Reactive P, ESR: Reviewed - DM Control DM Control: Glucose 104 mg/dL (74-106) 06/21/20 06:45 Insulin Dosing: N/A - Heart Failure/NH Heart Failure/NH: Troponin I < 0.05 ng/mL (<0.06) 06/19/20 12:30 EF%, BRINA's, B-Blockers, Diuretics: Reviewed (currently on a lasix gtt at 5mg/hr (s/p 4u of RBCs)) - BP Control BP Control: Blood Pressure 124/58 Blood Pressure 100/67 Blood Pressure 130/62 Blood Pressure 130/62 If elevated: Reviewed - Qtc Review If Elevated: Reviewed (QTc 460 on admission) - IV to PO Switch IV Medications: Reviewed - Home Meds Home Med List reviewed: Reviewed Relevent Home Meds Not ordered & why?: IBU prn - Current meds Current Medication Order Review: Reviewed (Wt up to 77.4 kilos (from 66.6kg - obtained in ED from bed scale) - lasix gtt started, monitor I/Os daily wt, kidney function)
[2020-06-21] MEDS: Normal Saline 1,000 ML 30 ML IV (11:39)
--- NOTE | 2020-06-21 12:18 | PDOC.CMPRO ---
- If Service Date Differs Date of service: 06/21/20 Time of Service: 12:18 Care Management Progress Note S/O: Meghana remains ICU level of care, she was started on a lasix gtt for fluid overload. CM contacted her daughter Shantelle who is thankful for the contact she states she is her DPOA. She is staying with her Mom and so is her sister. Mom has not been doing well at home and has been resistant to services. She is now willing to have services in the home as she does not want to go to a nursing facility. CM reviewed options with Shantelle who agrees to home health nursing, PT, OT and DRAWING FRAME TENDER, as well as a referral to [facility]. CM reviewed the options for retirement medicaid and also encouraged her to see legal advise to complete the LTM application. CM reviewed options in the community for private care givers including [facility] care givers and [facility]. Shantelle would like to be updated on Mom's progress, when CM makes the referral to [facility] I will include daughters contact information. Meghana is not ready for discharge at this time. A: Severe Anemia, TRACY and CKD and Multiple Myoloma P: Meghana will be discharged home when medically ready with new home health nursing, PT, OT and DRAWING FRAME TENDER. Referral to [facility] for options. Daughter to be kept up to date with the discharge plan. Shantelle's contact number is [phone]. Transportation private car with family at time of discharge.
--- NOTE | 2020-06-21 12:49 | PT.INTREAT ---
Date of service: 06/21/20 Time of Service: 10:20 PT Notes Visit Reasons: SEVERE ANEMIA, TRACY ON CKD, MM Inpatient Physical Therapy Treatment Note [facility] Date: 06/21/2020 PRECAUTIONS: Fall SUBJECTIVE: Meghana reports that she is feeling better today, although appears confused about her current length of stay, as well as diagnosis. She is thankful to be receiving PT while she is hospitalized, and is hopeful that she can return to home with HH PT when she is feeling stronger. OBJECTIVE: Patient demonstrates difficulty catching her breath, taking short deep breaths every few seconds while talking. She appears SOB throughout session. PAIN: No c/o pain BED MOBILITY/TRANSFERS/GAIT: Hold OOB activities due to patient's O2 Sats and SOB Rolling L/R: I THEREX: Patient was instructed in an UE and LE strengthening program, in both supine and side-lying positions, as per flow sheet. She requires assist with clamshells and SL hip abduction exercises due to weakness. ASSESSMENT: Patient tolerated session without complaint of pain. She demonstrates significant SOB throughout session, even while at rest. Patient would benefit from continued strengthening and transfer and gait training, when medically appropriate. PLAN: Continue with global strengthening, and begin transfer and gait training when medically appropriate. TREATMENT CODE/TIME: 25 minutes; [id number] x2
[2020-06-21 15:03] LABS: BE -9 mmol/L (-2-3); HCO3 18 mmol/L (22-26); pCO2 40 mmHg (35-45); pH 7.26 (7.35-7.45); pO2 44 mmHg (80-105); sO2 75 % (95-98); tCO2 18 mmol/L (23-27)
[2020-06-21 15:06] LABS: Site Right Radial
--- NOTE | 2020-06-21 15:06 | PGE_ITS ---
Date of Service Date of service: 06/21/20 Time of Service: 15:06 Assessment and Plan Assessment and plan (1) Decubitus ulcer of coccygeal region: Status: Acute Assessment and plan: Cont mepilex to wound per wound care Qualifiers: Pressure injury stage: stage 1 Qualified Code(s): L89.151 - Pressure ulcer of sacral region, stage 1 (2) Gzfgz-zy-rrgccml kidney injury: Status: Acute Assessment and plan: Creatinine improved to 2.96 Poor urine outpt. Placed on lasix drip. At 10mg/hour her outpt is appx 50ml/hr. Repeat creatinine is pending. Considering Lasix bolus. Monitor. (3) Multiple myeloma: Status: Acute Assessment and plan: Likely the etiology of her anemia (along with possible GI loses) and her CKD She hasn't been to follow up for MM with [facility] [place] for appx 2 years per pt. She is not inclined at this time to want to pursue further follow up and treatment. Ongoing discussion. Qualifiers: Multiple myeloma remission status: not in remission Qualified Code(s): C90.00 - Multiple myeloma not having achieved remission (4) Anemia: Status: Chronic Assessment and plan: Hgb 7.3 yeserday after transfusion of 4 units RBCs total. Hgb today 7.0. Repeat Hgb today is pending. Qualifiers: Anemia type: unspecified type Qualified Code(s): D64.9 - Anemia, unspecified Subjective Subjective Patient reports: denies nausea and vomiting Interval history since last seen: C/O SOA. No F/C. Tolerating food but eating very little. Exam Const General: cooperative, frail appearing and ill appearing Nutritional Appearance: overweight Orientation: alert, oriented to person and oriented to place Resp Effort & Inspection: normal respiratory effort Auscultation: clear to auscultation bilaterally and diminished lung sounds Cardio Rate: regular rate Rhythm: regular rhythm Heart Sounds: S1 normal and S2 normal GI Palpation: soft and nontender Auscultation: normal bowel sounds Extrem General: no calf tenderness and edema Laterality: bilateral (nonpitting) Objective Last Vital Signs Temp 36.3 C L 06/21/20 04:10 Pulse 77 06/21/20 08:01 Resp 25 H 06/21/20 08:01 BP 124/58 L 06/21/20 08:01 Pulse Ox 91 L 06/21/20 08:01 Laboratory Results - last 24 hr 06/19/20 06/19/20 06/20/20 21:00 21:00 06:35 WBC RBC Hgb Hct MCV MCH MCHC RDW Plt Count MPV Immature Gran % Neutrophils % Lymphocytes % Monocytes % Eosinophils % Basophils % Nucleated RBC % Absolute Neutrophils Absolute Lymphocytes Absolute Monocytes Absolute Eosinophils Absolute Basophils Sodium Potassium Chloride Carbon Dioxide Anion Gap BUN Creatinine Estimated GFR/1.73 m2 Glucose Calcium Qndi-1-Jlftrvoktnyyz Cancelled Ur Random Creatinine 80.40 U Random Total Protein 92.3 H Urine Total Volume 800 800 Ur Creatinine 24 Hour 0.64 Ur Total Protein 24 Hr 738.4 H 06/20/20 06/21/20 06/21/20 15:32 06:45 06:45 WBC 4.20 L RBC 2.47 L Hgb 7.3 L 7.0 L Hct 23.4 L 22.5 L MCV 91.1 MCH 28.3 MCHC 31.1 L RDW 21.1 H Plt Count 129 L MPV 9.4 Immature Gran % 0.7 Neutrophils % 74.5 Lymphocytes % 11.4 Monocytes % 12.4 Eosinophils % 1.0 Basophils % 0.0 Nucleated RBC % 1 Absolute Neutrophils 3.13 Absolute Lymphocytes 0.48 L Absolute Monocytes 0.52 Absolute Eosinophils 0.04 Absolute Basophils 0.00 Sodium 134 L Potassium 4.3 Chloride 108 H Carbon Dioxide 17.7 L Anion Gap 8.3 BUN 66 H Creatinine 2.96 H Estimated GFR/1.73 m2 15.17 Glucose 104 Calcium 7.8 L Vkos-0-Otobdimakrenf Ur Random Creatinine U Random Total Protein Urine Total Volume Ur Creatinine 24 Hour Ur Total Protein 24 Hr
--- NOTE | 2020-06-21 15:15 | DI.RAD_ITS ---
EXAM: XR PORTABLE CHEST AP CLINICAL HISTORY: SOA TECHNIQUE: 2D digital imaging was performed. COMPARISON: CT CT CHEST/ABD/PEL WO from 06/19/[address] CHEST/ABD/PEL WO from 06/19/2020 FINDINGS: MEDIASTINUM: Normal. HEART: Normal. PULMONARY VASCULATURE: Normal. LUNGS: When compared to the CT scan from 06/19/2020, there does appear to be a progression of the cheri ateral pulmonary infiltrates. PLEURAL SPACE: No pleural effusion or pneumothorax. BONE:Within normal limits for the patient's age. OTHER FINDINGS:There is poor inspiration. There is elevation of the right hemidiaphragm. IMPRESSION: Progressive bilateral pulmonary infiltrates. This may represent worsening pneumonia. Interstitial e kj cannot be excluded. Please correlate clinically. DATA REPOSITORY: RADIATION DOSE DELIVERED:
--- NOTE | 2020-06-21 15:23 | DI.VRAD_ITS ---
PROCEDURE INFORMATION: Exam: XR Chest, 1 View Exam date and time: 06/21/2020 2:44 PM Age: 80 years old Clinical indication: Shortness of breath TECHNIQUE: Imaging protocol: XR of the chest Views: 1 view. Other technique: Portable exam. COMPARISON: CT CHEST/ABD/PEL WO 06/19/2020 1:17 PM FINDINGS: Lungs: There are coarse bilateral increased parenchymal markings particularly at the right mid and lower lung level with moderate left lower lobe involvement. The pulmonary vascularity appears redistributed. Pleural space: Probable small bilateral pleural effusions. Heart/Mediastinum: Heart size upper limits of normal. Bones/joints: Unremarkable. IMPRESSION: 1. Probable degree of congestive heart failure. 2. Concern for bibasilar consolidation right worse than left. Follow-up to assess clearing recommended. Dictated and Authenticated by: Roxanna Ramos MD. Ordering:IVANA Schulte MD
[2020-06-21 15:24] LABS: HCT 23.2 % (36.0-46.0); HGB 7.2 g/dL (11.2-15.7)
[2020-06-21 15:31] LABS: Anion Gap 6.2 mmol/L (3-11); BUN 68 mg/dL (7-18); CO2 18.8 mmol/L (21.0-32.0); Calcium 7.9 mg/dL (8.5-10.1); Chloride 109 mmol/L (98-107); Estimated GFR 13.38 (mL/min/1.73m2); Glucose 145 mg/dL (74-106); Potassium 4.7 mmol/L (3.5-5.1); Sodium 134 mmol/L (136-145)
[2020-06-21] MEDS: Bumetanide 1 MG/4 ML VIAL IVP (17:35)
[2020-06-21] MEDS: traMADol 50 MG TAB 25 MG PO (23:02)
[2020-06-22] VITALS (34 sets, daily range): BP systolic 83–127; BP diastolic 32–71; PULSE 58–78; RESP 12–28; TEMP 34–36.6; O2SAT 86–99
[2020-06-22] MEDS: LORazepam 2 MG/ML VIAL 0.5 MG IVP (00:33)
[2020-06-22] MEDS: Normal Saline Flush 10 ML SYR IVP ×6 (00:39→20:24)
--- NOTE | 2020-06-22 01:00 | NUR.NOTE ---
Nursing Note: After BiPAP placed and IV ativan administered, pt appears significantly more comfortable. Pt asleep, did not respond to name being called, but aroused when turned to left side.
[2020-06-22 07:18] LABS: HCT 21.3 % (36.0-46.0)
[2020-06-22 07:26] LABS: Anion Gap 7.9 mmol/L (3-11); BUN 73 mg/dL (7-18); CO2 19.1 mmol/L (21.0-32.0); CREATININE 3.48 mg/dL (0.55-1.02); Calcium 7.8 mg/dL (8.5-10.1); Chloride 111 mmol/L (98-107); Estimated GFR 12.59 (mL/min/1.73m2); Glucose 100 mg/dL (74-106); Potassium 4.5 mmol/L (3.5-5.1); Sodium 138 mmol/L (136-145)
[2020-06-22 07:36] LABS: HGB 6.4 g/dL (11.2-15.7)
[2020-06-22] MEDS: Furosemide 100 MG/10 ML VIAL 80 MG IVP (08:37)
[2020-06-22] MEDS: Esomeprazole 20 MG CAPCR PO (09:07)
--- NOTE | 2020-06-22 10:16 | PDOC.CMPRO ---
- If Service Date Differs Date of service: 06/22/20 Time of Service: 10:16 Care Management Progress Note S/O: Meghana remains ICU level of care, she will have a palliative consult today with concern is she is not responding well to diuretics she is now using a bipap. Goals of care to be discussed with Meghana and her family. CM is awaiting a time for palliative meeting and will contact the family to coordinate over the phone. A: Severe Anemia, TRACY and CKD and Multiple Myoloma P: Meghana to meet with palliative care today to discuss goals of care. She may transition to hospice pending palliative consult. Daughter to be kept up to date with the discharge plan. Shantelle's contact number is [phone]. CM coordinate transportation pending disposition.
--- NOTE | 2020-06-22 11:15 | W.NUTCONSULT ---
Date of service: 06/22/20 Time of Service: 11:15 Nutritional Consult ASSESSMENT: 80 year old female admitted with CKD, atelectasis, dehydration, CKD, with multiple myeloma and Heme + stool with stage 1 decub on coccyx. BMI indicates mild obesity. Weight has been stable > 1 year per patient. Following regular diet with poor intake. Met with Meghana today, she reports not liking any milk products due to lactose intolerance, reports no other food allergies. Willing to try ensure clear BID to supplement po intake. At high nutritional risk in view of poor intake for extended period of time. Estimated Needs: 0546-0422 kcal, 65-70 g protein, 1800 ml fluid. NUTRITIONAL DIAGNOSIS: inadequate nutrient intake due to poor po intake > 3 days INTERVENTION: regular meal plan ensure clear BID MONITORING AND EVALUATION: po intake, labs, weight Time Spent in Nutritional Counseling and Treatment: 15 min
[2020-06-22] MEDS: Senna TAB 1 TAB PO (13:02)
[2020-06-22] MEDS: Docusate Sodium 100 MG CAP PO ×2 (13:03→20:04)
[2020-06-22 13:39] LABS: Albumin 26.2 % (55.8-66.1); Comment (See Note); Monoclonal Spike 54.9 % (None Seen); Total Protein 11.8 g/dL (6.3-8.2)
--- NOTE | 2020-06-22 14:57 | W.PM.PROGNOT ---
Date of Service Date of service: 06/22/20 Time of Service: 09:11 Assessment and Plan Assessment and plan (1) Gkxdj-ls-fknaeju kidney injury: Status: Acute Assessment and plan: Acute on chronic. Creatinine has increased with use of diuretics; now 3.48 Monitor. Qualifiers: Acute renal failure type: unspecified Chronic kidney disease stage: stage 4 (severe) Qualified Code(s): N17.9 - Acute kidney failure, unspecified; N18.4 - Chronic kidney disease, stage 4 (severe) (2) Decubitus ulcer of coccygeal region: Status: Acute Assessment and plan: Cont wound care recommendations. Qualifiers: Pressure injury stage: stage 1 Qualified Code(s): L89.151 - Pressure ulcer of sacral region, stage 1 (3) Multiple myeloma: Status: Acute Assessment and plan: Advance most likely. No f/u with heme/onc for appx 2 years. SPEP pending Qualifiers: Multiple myeloma remission status: not in remission Qualified Code(s): C90.00 - Multiple myeloma not having achieved remission (4) Anemia: Status: Chronic Assessment and plan: Hgb declining; 6.4 today. S/P 4 units RBCs With improving diureses, may be able to transfuse another unit in the next 24 hours. Monitor Qualifiers: Anemia type: unspecified type Qualified Code(s): D64.9 - Anemia, unspecified (5) Pneumonia: Status: Acute Assessment and plan: Questionable bilateral consolidations on CXR yesterday. Initiate Cefepime. Procalcitonin ordered. Subjective Subjective Patient reports: tolerating liquids well and afebrile; denies bowel movement Interval history since last seen: Patient initially lethargic but arousable with verbal stimuli. She received a dose of Ativan overnight for agitation. She became more alert throughout the AM She describes being thirsty but having little appetite. Exam Const General: cooperative and frail appearing Nutritional Appearance: overweight Eyes Sclera: sclerae normal Pupils: PERRL Neck Neck: full ROM Resp Effort & Inspection: normal respiratory effort and not able to speak in complete sentences (shortness of air with long sentences.) Auscultation: clear to auscultation bilaterally and diminished lung sounds Cardio Rate: regular rate Rhythm: regular rhythm Heart Sounds: S1 normal and S2 normal GI Palpation: soft and nontender Extrem General: no pedal edema and no calf tenderness Objective Last Vital Signs Temp 35.6 C L 06/22/20 14:44 Pulse 72 06/22/20 12:00 Resp 19 06/22/20 12:00 BP 124/71 06/22/20 12:00 Pulse Ox 97 06/22/20 14:44 Laboratory Results - last 24 hr 06/21/20 06/21/20 06/21/20 15:04 15:07 15:07 Hgb 7.2 L Hct 23.2 L ABG Sample Site Right radial ABG pH 7.26 L ABG pCO2 40 ABG pO2 44 L ABG HCO3 18 L ABG Total CO2 18 L ABG O2 Saturation 75 L ABG Base Excess -9 L Oxygen Liter Flow 4 lpm oxymask Sodium 134 L Potassium 4.7 Chloride 109 H Carbon Dioxide 18.8 L Anion Gap 6.2 BUN 68 H Creatinine 3.30 H Estimated GFR/1.73 m2 13.38 Glucose 145 H Calcium 7.9 L 06/22/20 06/22/20 06:10 06:10 Hgb 6.4 L* Hct 21.3 L ABG Sample Site ABG pH ABG pCO2 ABG pO2 ABG HCO3 ABG Total CO2 ABG O2 Saturation ABG Base Excess Oxygen Liter Flow Sodium 138 Potassium 4.5 Chloride 111 H Carbon Dioxide 19.1 L Anion Gap 7.9 BUN 73 H Creatinine 3.48 H Estimated GFR/1.73 m2 12.59 Glucose 100 Calcium 7.8 L
[2020-06-22 15:11] LABS: Albumin, Urine % 12.2 % ((See Note)); Globulins, Urine % 87.8 %; Immunotyping, Urine (See Note); Total Protein Urine 80 mg/dL (See Note); Total Protein, Urine 24hrs 640 mg/24hrs (<150); Urine Volume 800 mL
[2020-06-22 15:17] LABS: Immunotyping, Serum (See Note)
[2020-06-22 17:24] LABS: Procalcitonin 1.4 ng/mL
[2020-06-22] MEDS: CEFEPIME 1 GM in Normal Saline 50 ML IVPB (18:36)
[2020-06-22] MEDS: Normal Saline 1,000 ML 30 ML IV (18:47)
[2020-06-22] MEDS: Pantoprazole 40 MG VIAL IVP (20:03)
[2020-06-22] MEDS: Timolol 0.5% 5 ML BTL OU (20:04)
--- NOTE | 2020-06-22 20:20 | W.PALLCONSUL ---
Date of service: 06/22/20 Time of Service: 18:20 History of Present Illness Narrative: Meghana is an 80-year-old woman with multiple myeloma and renal failure. She came to the hospital severely anemic, and high creatinine. She received several units of blood, was feeling better, but then was fluid overloaded. She has not received any care for her multiple myeloma for 2 years. I was asked by hospitalist and care management to speak with Meghana regarding her goals of care, and also what she would like done if this scenario recurs. Previously Meghana was living at home with her . She does have a very involved family including Jazzmine who was on the line with this ([phone]) Meghana had recently spoken with the hospitalist regarding CODE STATUS. She is presently a DNR/DNI. A COLST form was started. Meghana, her daughter and I spoke for some time about what she really wants to do. She says she does not want aggressive care, but at the same time wants to return home. She feels that she still has many things that she would like to do and has purpose to her life. She would like to go on doing these for some time. She is okay with receiving further blood transfusions, but does not want to be transferred, does not want further care and her multiple myeloma. She wants to reverse what she has now i.e. renal failure, but does not want dialysis Consults Consult date: 06/22/20 Assessment and Plan Assessment and plan (1) Rlsbr-yv-ouomnjr kidney injury: Status: Acute Qualifiers: Acute renal failure type: unspecified Chronic kidney disease stage: stage 4 (severe) Qualified Code(s): N17.9 - Acute kidney failure, unspecified; N18.4 - Chronic kidney disease, stage 4 (severe) (2) Pneumonia: Status: Acute (3) Multiple myeloma: Status: Acute Qualifiers: Multiple myeloma remission status: not in remission Qualified Code(s): C90.00 - Multiple myeloma not having achieved remission (4) Anemia: Status: Chronic Qualifiers: Anemia type: unspecified type Qualified Code(s): D64.9 - Anemia, unspecified (5) Palliative care patient: Status: Acute Assessment and plan: After long discussion she really admits that she is willing to go to a rehab center for care to get stronger so she can go home. She understands that this may take 2 to 4 weeks minimum. She is willing to go through additional blood transfusions. We did complete the COLST form. She is a DNR/DNI, does not want a feeding tube, is willing to be transferred back to the hospital, received antibiotics, and IV fluids. The EMR was updated. Patient got the original COLST form back. She does not want additional care for her multiple myeloma She was definitely short of breath while I was in the room. She did not like the sound of using morphine but is willing to use oral morphine in low doses to see if that will help. I have ordered this for her. We will talk again in a couple of days. 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 I explained that although both occur in the spine that it is unlikely that they are related. I do not think she was convinced. She is a big believer in research and is trying to do more research on this. I have spent more than 50% of time in counseling with this patient. (6) Physician orders for life-sustaining treatment (POLST) form indicates patient wish for bf-eso-kmruozbkucd status: Status: Acute (7) Shortness of breath: Status: Acute Review of Systems Constitutional Constitutional: Reports lethargy and Reports weakness ENT Ears, Nose, Mouth, and Throat: Reports dry mouth Cardiovascular Cardiovascular: Reports rapid heart rate, Reports lightheadedness, Reports dyspnea and Reports orthopnea Respiratory Respiratory: Reports dyspnea Gastrointestinal Gastrointestinal: Reports constipation Genitourinary Genitourinary: Reports other (catheter in place) Neurologic Neurologic: Reports weakness [facility] Medical History (Updated 06/22/20 @ 20:35 by Rachel Hernandez MD, [place]) Chronic renal insufficiency Essential hypertension Multiple myeloma Surgical History (Updated 06/19/20 @ 18:28 by Chris Corrales) Status post total hysterectomy and bilateral salpingo-oophorectomy Performed at age 28 for allegedly ovarian cancer Social History Smoking/Tobacco Use Status: Never Smoking risk assessment performed?: Yes Alcohol Intake: never Drug use: Never Do you feel safe at home: Yes Do you feel safe in your relationship?: Yes Exam Const General: cooperative, in distress (very short of breath) and frail appearing Nutritional Appearance: average body habitus Orientation: oriented x3 Eyes General: appearance normal, both eyes and all related structures Resp Effort & Inspection: able to speak in complete sentences and labored Auscultation: diminished lung sounds Cardio Rhythm: regular rhythm Heart Sounds: murmur GI Palpation: soft Skin General skin exam: atrophy and ecchymosis Psych Attitude: cooperative Results Last Vital Signs Temp 97.2 F L 06/22/20 19:12 Pulse 77 06/22/20 18:59 Resp 28 H 06/22/20 19:12 BP 106/54 L 06/22/20 16:01 Pulse Ox 95 06/22/20 18:59 Labs Result diagrams: 06/23/20 06:15 06/23/20 06:15 Labs: Laboratory Results - last 24 hr 06/19/20 06/19/20 06/22/20 12:03 21:00 06:10 Hgb Hct Sodium 138 Potassium 4.5 Chloride 111 H Carbon Dioxide 19.1 L Anion Gap 7.9 BUN 73 H Creatinine 3.48 H Estimated GFR/1.73 m2 12.59 Glucose 100 Calcium 7.8 L Total Protein (PEP) 11.8 H Albumin % (PEP) 26.2 L Darps-5-Cvvjxfgis (%) 3.5 Ilmri-1-Clzdixnur (%) 7.5 Beta Globulins (%) 4.6 L Gamma Globulins (%) 58.2 H M-Alexis % 54.9 H PEP Comment (see note) Procalcitonin Ur Random Albumin 12.2 U Random Total Protein 80 U Collection Duration 24.0 Urine Total Volume 800 Ur Protein 24 Hr Calc 640 H Urine Globulin 87.8 Urine Random PEP Note See comment Serum Immunofixation (see note) Urine Immunofixation (see note) 06/22/20 06/22/20 06:10 06:10 Hgb 6.4 L* Hct 21.3 L Sodium Potassium Chloride Carbon Dioxide Anion Gap BUN Creatinine Estimated GFR/1.73 m2 Glucose Calcium Total Protein (PEP) Albumin % (PEP) Zkyft-9-Enxzlajjx (%) Ipejl-9-Tuyrrbbmi (%) Beta Globulins (%) Gamma Globulins (%) M-Alexis % PEP Comment Procalcitonin 1.4 Ur Random Albumin U Random Total Protein U Collection Duration Urine Total Volume Ur Protein 24 Hr Calc Urine Globulin Urine Random PEP Note Serum Immunofixation Urine Immunofixation
[2020-06-23] VITALS (30 sets, daily range): BP systolic 101–137; BP diastolic 44–72; PULSE 71–82; RESP 9–22; TEMP 35.8–36.7; O2SAT 87–98
[2020-06-23 07:01] LABS: Abs Immature Grans 0.03 10^3/uL (0.0-0.06); Absolute Basophil Count 0.01 10^3/uL (0.0-0.2); Absolute Eosinophil Count 0.06 10^3/uL (0.0-0.7); Absolute Lymphocyte Count 0.51 10^3/uL (1.2-3.4); Absolute Monocyte Count 0.53 10^3/uL (0.1-0.8); Absolute Neutrophil Count 3.16 10^3/uL (1.2-6.7); Basophils % 0.2; Eosinophils % 1.4; HCT 22.1 % (36.0-46.0); Immature Grans % 0.7; Lymphocytes % 11.9; MCH 28.2 pg (27.0-33.0); MCHC 30.3 % (32.0-36.0); MCV 92.9 fL (80-95); MPV 9.3 fL (8.0-11.0); Monocytes % 12.3; Neutrophils % 73.5; Nucleated RBC 0 %; Platelet Count 124 10^3/uL (130-400); RBC 2.38 10^6/uL (3.93-5.22); RDW 20.8 % (11.7-14.6); RDW-SD 68.5 fL
[2020-06-23 07:09] LABS: Anion Gap 6.8 mmol/L (3-11); BUN 71 mg/dL (7-18); CO2 21.2 mmol/L (21.0-32.0); CREATININE 3.28 mg/dL (0.55-1.02); Calcium 7.4 mg/dL (8.5-10.1); Chloride 110 mmol/L (98-107); Estimated GFR 13.48 (mL/min/1.73m2); Glucose 112 mg/dL (74-106); Potassium 4.1 mmol/L (3.5-5.1); Sodium 138 mmol/L (136-145)
[2020-06-23 07:29] LABS: HGB 6.7 g/dL (11.2-15.7)
[2020-06-23] MEDS: Docusate Sodium 100 MG CAP PO (09:43)
[2020-06-23] MEDS: Acetaminophen 325 MG TAB PO (09:44)
[2020-06-23] MEDS: Senna TAB 1 TAB PO ×3 (09:44→18:21)
--- NOTE | 2020-06-23 10:14 | PDOC.CMPRO ---
Care Management Progress Note S/O: Meghana remains ICU level of care, closely monitored at this time. She reported feeling better today and was able to ambulate with PT a short distance. She had a palliative consult yesterday with who reviewed Meghana's goals of care. Per Dr. Hernandez, Meghana reported she did not want aggressive care, but does want to return home. Meghana has many things that she would like to do and has purpose to her life. She would like to go on doing these for some time. Meghana is also okay with receiving further blood transfusions, but does not want to be transferred, does not want further care for multiple myeloma. She wants to reverse what she has now i.e. renal failure, but does not want dialysis. A: Meghana was admitted to [facility] on 06/19/20 for Severe Anemia, TRACY and CKD and Multiple Myeloma P: Meghana met with palliative care to discuss goals of care; she wants to improve and return home. Anticipate she will return home with close follow up with Palliative care for possible Hospice admission consideration. Shantelle's (daughter) contact number is [phone] to be kept up to date with the discharge plan. CM to coordinate transportation pending disposition.
[2020-06-23] MEDS: Normal Saline 1,000 ML 30 ML IV (10:31)
--- NOTE | 2020-06-23 12:17 | PT.INTREAT ---
Date of service: 06/23/20 Time of Service: 08:05 PT Notes Visit Reasons: SEVERE ANEMIA, TRACY ON CKD, MM Inpatient Physical Therapy Treatment Note [facility] Date: 06/23/2020 PRECAUTIONS: Fall SUBJECTIVE: Meghana states that she is feeling better today. She is agreeable to participating in PT, although indicates that she fatigues easily. OBJECTIVE: PAIN: No c/o pain BED MOBILITY/TRANSFERS Supine-sit: Min A with HOB at 40 degrees Sit-stand: CGA from bed surface; Min A from low chair surface Stand-sit: CGA Bed-Chair: Min A Chair-bed: Min A GAIT Assistive Device: FWW Weight bearing: Full Assist: Min A Distance: 6 steps in a.m.; 15' in p.m. Deviation: Assist with FWW mechanics, increased fatigue THEREX: Patient was instructed in several LE strengthening exercises, in a seated position, as per flow sheet. ASSESSMENT: Patient tolerated session with complaint of increased fatigue. She was able to tolerate a progression in gait distance with FWW support with Min A for FWW management. PLAN: Continue with global strengthening and gait and transfer training for improved mobility and activity tolerance. TREATMENT CODE/TIME: Session 1: 30 minutes; [id number] x2 Session 2: 25 minutes; [id number], [id number]
[2020-06-23] MEDS: Normal Saline Flush 10 ML SYR IVP ×2 (12:56→16:09)
--- NOTE | 2020-06-23 13:20 | W.PM.PROGNOT ---
Date of Service Date of service: 06/23/20 Time of Service: 09:13 Assessment and Plan Assessment and plan (1) Palliative care patient: Status: Acute Assessment and plan: Appreciate consult. She desires no further w/u or interventions regarding multiple myeloma. She does not want hemodialysis if ever recommended. DNR/DNI (2) Pneumonia: Status: Acute Assessment and plan: Bilateral lower lobe consolidations. Procal elevated at 1.5. WBC count normal. On Cefepime. Respiratory status is much improved; mostly d/t improved diureses (3) Yvmdt-po-zqvyuyb kidney injury: Status: Acute Assessment and plan: Baseline creatinine, CrCl is not known. Presenting creatinine of 4.0. Now 3.28. Monitor Qualifiers: Acute renal failure type: unspecified Chronic kidney disease stage: stage 4 (severe) Qualified Code(s): N17.9 - Acute kidney failure, unspecified; N18.4 - Chronic kidney disease, stage 4 (severe) (4) Multiple myeloma: Status: Acute Assessment and plan: M-spike on SPEP is 54.9% of total protein of 11.8. Qualifiers: Multiple myeloma remission status: not in remission Qualified Code(s): C90.00 - Multiple myeloma not having achieved remission (5) Anemia: Status: Chronic Assessment and plan: Hgb 6.7. May see further improvement with further diureses. Once she does diurese more, consider another unit of RBCs. Qualifiers: Anemia type: unspecified type Qualified Code(s): D64.9 - Anemia, unspecified Subjective Subjective Patient reports: feels better, tolerating liquids well, tolerating a regular diet (appetite is limited) and shortness of breath; denies bowel movement, nausea and vomiting Interval history since last seen: Up in chair. Exam Const General: cooperative, no acute distress and frail appearing Nutritional Appearance: overweight Neck Neck: full ROM and no JVD Resp Effort & Inspection: normal respiratory effort Auscultation: clear to auscultation bilaterally and diminished lung sounds Cardio Rate: regular rate Rhythm: regular rhythm Heart Sounds: S1 normal and S2 normal GI Palpation: soft and nontender Auscultation: normal bowel sounds Skin General skin exam: no rashes or lesions noted Extrem General: no pedal edema and no calf tenderness Objective Last Vital Signs Temp 36.0 C L 06/23/20 09:00 Pulse 82 12/15/20 12:00 Resp 21 06/23/20 12:00 BP 132/61 06/23/20 12:00 Pulse Ox 90 L 06/23/20 12:00 Laboratory Results - last 24 hr 06/19/20 06/19/20 06/20/20 12:03 21:00 06:35 WBC RBC Hgb Hct MCV MCH MCHC RDW Plt Count MPV Immature Gran % Neutrophils % Lymphocytes % Monocytes % Eosinophils % Basophils % Nucleated RBC % Absolute Neutrophils Absolute Lymphocytes Absolute Monocytes Absolute Eosinophils Absolute Basophils Sodium Potassium Chloride Carbon Dioxide Anion Gap BUN Creatinine Estimated GFR/1.73 m2 Glucose Calcium Magnesium Total Protein (PEP) 11.8 H Albumin % (PEP) 26.2 L Iqxso-8-Gtzvyfftt (%) 3.5 Fzgcr-0-Ibmdknfaw (%) 7.5 Beta Globulins (%) 4.6 L Caws-5-Vpbztyvzblbog 57.80 H Gamma Globulins (%) 58.2 H M-Alexis % 54.9 H PEP Comment (see note) Procalcitonin Ur Random Albumin 12.2 U Random Total Protein 80 U Collection Duration 24.0 Urine Total Volume 800 Ur Protein 24 Hr Calc 640 H Urine Globulin 87.8 Urine Random PEP Note See comment Serum Immunofixation (see note) Urine Immunofixation (see note) 06/22/20 06/23/20 06/23/20 06:10 06:15 06:15 WBC 4.30 L RBC 2.38 L Hgb 6.7 L* Hct 22.1 L MCV 92.9 MCH 28.2 MCHC 30.3 L RDW 20.8 H Plt Count 124 L MPV 9.3 Immature Gran % 0.7 Neutrophils % 73.5 Lymphocytes % 11.9 Monocytes % 12.3 Eosinophils % 1.4 Basophils % 0.2 Nucleated RBC % 0 Absolute Neutrophils 3.16 Absolute Lymphocytes 0.51 L Absolute Monocytes 0.53 Absolute Eosinophils 0.06 Absolute Basophils 0.01 Sodium 138 Potassium 4.1 Chloride 110 H Carbon Dioxide 21.2 Anion Gap 6.8 BUN 71 H Creatinine 3.28 H Estimated GFR/1.73 m2 13.48 Glucose 112 H Calcium 7.4 L Magnesium 2.0 Total Protein (PEP) Albumin % (PEP) Tvmqe-2-Pltkwtkqc (%) Foycp-7-Ulzxzfnet (%) Beta Globulins (%) Ttfd-2-Pxoiahyecogwu Gamma Globulins (%) M-Alexis % PEP Comment Procalcitonin 1.4 Ur Random Albumin U Random Total Protein U Collection Duration Urine Total Volume Ur Protein 24 Hr Calc Urine Globulin Urine Random PEP Note Serum Immunofixation Urine Immunofixation
[2020-06-23] MEDS: Pantoprazole 40 MG VIAL IVP (16:09)
[2020-06-23] MEDS: CEFEPIME 1 GM in Normal Saline 50 ML IVPB (16:10)
[2020-06-23] MEDS: Timolol 0.5% 5 ML BTL OU (20:00)
[2020-06-24] VITALS (24 sets, daily range): BP systolic 100–134; BP diastolic 49–60; PULSE 73–85; RESP 10–29; TEMP 35.6–36.3; O2SAT 87–97
--- NOTE | 2020-06-24 07:02 | PDOC.CMPRO ---
- If Service Date Differs Date of service: 06/24/20 Time of Service: 07:02 Care Management Progress Note S/O: Meghana remains ICU level of care, clinical chart reviewed and Meghana's plan of care was reviewed at interdisciplinary rounds. Meghana and her daughter agree to a referral for short term rehab. Two they have chosen [facility] and the [facility]. CM faxed referral to both and waiting review. Meghana will likely be ready on Monday for transfer. Her daughter Shantelle is grateful for the support received by and hospitalist and states she is well informed. She wants to align with Meghana's goal to return home after she has had a short rehab stay. A: Meghana was admitted to [facility] on 06/19/20 for Severe Anemia, TRACY and CKD and Multiple Myeloma P: Meghana met with palliative care to discuss goals of care; she wants to improve and return home.Referrals to [facility] and [facility] waiting review. Transportation pending disposition. Shantelel Kowalski.s daughter contact number is [phone] to be kept up to date with the discharge plan. CM to coordinate transportation pending disposition.
[2020-06-24 07:05] LABS: Anion Gap 4.1 mmol/L (3-11); BUN 62 mg/dL (7-18); CO2 21.9 mmol/L (21.0-32.0); CREATININE 2.79 mg/dL (0.55-1.02); Calcium 7.7 mg/dL (8.5-10.1); Chloride 110 mmol/L (98-107); Estimated GFR 16.25 (mL/min/1.73m2); Glucose 94 mg/dL (74-106); Sodium 136 mmol/L (136-145)
[2020-06-24 07:29] LABS: Abs Immature Grans 0.04 10^3/uL (0.0-0.06); Absolute Basophil Count 0.01 10^3/uL (0.0-0.2); Absolute Eosinophil Count 0.08 10^3/uL (0.0-0.7); Absolute Lymphocyte Count 0.56 10^3/uL (1.2-3.4); Absolute Monocyte Count 0.56 10^3/uL (0.1-0.8); Absolute Neutrophil Count 2.93 10^3/uL (1.2-6.7); Basophils % 0.2; Eosinophils % 1.9; HCT 24.1 % (36.0-46.0); HGB 7.3 g/dL (11.2-15.7); Lymphocytes % 13.4; MCH 28.1 pg (27.0-33.0); MCHC 30.3 % (32.0-36.0); MCV 92.7 fL (80-95); Monocytes % 13.4; Neutrophils % 70.1; Nucleated RBC 0 %; Platelet Count 138 10^3/uL (130-400); RDW 20.6 % (11.7-14.6); RDW-SD 68.4 fL; WBC 4.18 10^3/uL (4.4-10.8)
[2020-06-24] MEDS: Docusate Sodium 100 MG CAP PO (08:32)
[2020-06-24] MEDS: Polyethylene Glycol 3350 17 GM PACKET PO (08:32)
[2020-06-24] MEDS: Acetaminophen 325 MG TAB PO (08:33)
[2020-06-24] MEDS: Timolol 0.5% 5 ML BTL OU ×2 (08:34→20:29)
--- NOTE | 2020-06-24 13:06 | W.PM.PROGNOT ---
Date of Service Date of service: 06/24/20 Time of Service: 09:07 Assessment and Plan Assessment and plan (1) Pneumonia: Status: Acute Assessment and plan: On Cefepime. Procal was 1.4 Improving (2) Yummu-pb-ehhvhlx kidney injury: Status: Acute Assessment and plan: Creatinine improving; 3.28 > 2.79 Monitor Qualifiers: Acute renal failure type: unspecified Chronic kidney disease stage: stage 4 (severe) Qualified Code(s): N17.9 - Acute kidney failure, unspecified; N18.4 - Chronic kidney disease, stage 4 (severe) (3) Multiple myeloma: Status: Acute Assessment and plan: Pt has made decision not to f/u with any further evaluations for MM. M-spike on SPEP is 54.9%. Qualifiers: Multiple myeloma remission status: not in remission Qualified Code(s): C90.00 - Multiple myeloma not having achieved remission (4) Anemia: Status: Chronic Assessment and plan: Hgb improved; likely related to concentration effect of diureses. Hgb now 7.3. Monitor. Qualifiers: Anemia type: unspecified type Qualified Code(s): D64.9 - Anemia, unspecified Subjective Subjective Patient reports: no new complaints, feels better, no bowel movement, shortness of breath and afebrile Exam Const General: cooperative, no acute distress and frail appearing Orientation: alert and oriented x3 Neck Neck: no JVD Resp Effort & Inspection: normal respiratory effort Auscultation: diminished lung sounds and rales (faint in bases) Cardio Rate: regular rate Rhythm: regular rhythm Heart Sounds: S1 normal and S2 normal Extrem General: no pedal edema and no calf tenderness Objective Last Vital Signs Temp 35.6 C L 06/24/20 07:15 Pulse 80 06/24/20 07:45 Resp 13 06/24/20 07:45 BP 100/49 L 06/24/20 04:00 Pulse Ox 97 06/24/20 07:45 Laboratory Results - last 24 hr 06/24/20 06/24/20 06:08 06:08 WBC 4.18 L RBC 2.60 L Hgb 7.3 L Hct 24.1 L MCV 92.7 MCH 28.1 MCHC 30.3 L RDW 20.6 H Plt Count 138 MPV 9.0 Immature Gran % 1.0 Neutrophils % 70.1 Lymphocytes % 13.4 Monocytes % 13.4 Eosinophils % 1.9 Basophils % 0.2 Nucleated RBC % 0 Absolute Neutrophils 2.93 Absolute Lymphocytes 0.56 L Absolute Monocytes 0.56 Absolute Eosinophils 0.08 Absolute Basophils 0.01 Sodium 136 Potassium 4.0 Chloride 110 H Carbon Dioxide 21.9 Anion Gap 4.1 BUN 62 H Creatinine 2.79 H Estimated GFR/1.73 m2 16.25 Glucose 94 Calcium 7.7 L
--- NOTE | 2020-06-24 15:02 | DI.RAD_ITS ---
EXAM: XR PORTABLE CHEST AP CLINICAL HISTORY: CHF, questionable pneumonia TECHNIQUE: 2D digital imaging was performed. COMPARISON: CR,XR XR PORTABLE CHEST AP from 06/21/2020 FINDINGS: MEDIASTINUM: Normal. HEART: Normal. PULMONARY VASCULATURE: Normal. LUNGS: Though there are persistent bilateral infiltrates, there has been slight improvement in the nathan ngs compared to 06/21/2020. PLEURAL SPACE: No pleural effusion or pneumothorax. BONE:Within normal limits for the patient's age. OTHER FINDINGS:Normal. IMPRESSION: Slight improvement in the infiltrates of the lungs since 06/21/2020. DATA REPOSITORY: RADIATION DOSE DELIVERED:
--- NOTE | 2020-06-24 15:04 | PT.INTREAT ---
PT Notes Visit Reasons: SEVERE ANEMIA, TRACY ON CKD, MM 06/24/2020 SUBJECTIVE: Meghana complaining of fatigue today. She notes back discomfort when transferring out of bed. OBJECTIVE: [id number], [id number] Pt seen for PT in AM and PM. During PM session she refuses out of bed and performs bed exercises. TRANSFERS Supine to sit: Mod A x 1 Sit to supine: Mod A x 2 Sit to stand: Mod A x 1 Stand to sit: Min A x 1 GAIT Device: FWW Weight bearing: Full Assist: Min A Distance: 10'+5' Deviation: On supplemental O2 THEREX: Supine LE and UE light strengthening and ROM activities. Encouraged Pt to continue with quad sets when in bed. ASSESSMENT: Very low motivation level today despite encouragement. Her vitals remain in good limits throughout treatment today. PLAN: Continue to progress gait and activity tolerance. AM Session: 30' PM Session: 10' Yin Kaur PTA Clinic location: [facility] [place], [place]
[2020-06-24] MEDS: Pantoprazole 40 MG VIAL IVP (16:14)
[2020-06-24] MEDS: CEFEPIME 1 GM in Normal Saline 50 ML IVPB (16:15)
[2020-06-24] MEDS: Normal Saline Flush 10 ML SYR IVP (16:15)
--- NOTE | 2020-06-24 21:47 | NUR.NOTE ---
spoke with pts daughter Shantelle about pt's condition and she is well aware of her MOm's wishes and goals. She just wants to get her well enough to go for short term rehab for strength and come home with hospice care. Pt is stil indenial about multiple myelomas and doesn't want to discuss it. Care managers aware that this is the plan, to get her on her feet enough so that she can go home.
--- NOTE | 2020-06-24 21:59 | NUR.NOTE ---
denies pain at present and refuses pain med.
[2020-06-25] VITALS (22 sets, daily range): BP systolic 113–143; BP diastolic 46–109; PULSE 75–87; RESP 11–27; TEMP 35.8–36.6; O2SAT 93–97
[2020-06-25 07:06] LABS: Abs Immature Grans 0.03 10^3/uL (0.0-0.06); Absolute Eosinophil Count 0.08 10^3/uL (0.0-0.7); Absolute Lymphocyte Count 0.65 10^3/uL (1.2-3.4); Absolute Monocyte Count 0.58 10^3/uL (0.1-0.8); Absolute Neutrophil Count 2.32 10^3/uL (1.2-6.7); Eosinophils % 2.2; HCT 25.9 % (36.0-46.0); HGB 7.8 g/dL (11.2-15.7); Immature Grans % 0.8; Lymphocytes % 17.8; MCH 28.2 pg (27.0-33.0); MCHC 30.1 % (32.0-36.0); MCV 93.5 fL (80-95); MPV 8.9 fL (8.0-11.0); Monocytes % 15.8; Neutrophils % 63.4; Nucleated RBC 0 %; Platelet Count 142 10^3/uL (130-400); RBC 2.77 10^6/uL (3.93-5.22); RDW 20.1 % (11.7-14.6); WBC 3.66 10^3/uL (4.4-10.8)
[2020-06-25 07:14] LABS: Anion Gap 5.9 mmol/L (3-11); BUN 58 mg/dL (7-18); CO2 24.1 mmol/L (21.0-32.0); CREATININE 2.56 mg/dL (0.55-1.02); Chloride 109 mmol/L (98-107); Estimated GFR 17.94 (mL/min/1.73m2); Glucose 97 mg/dL (74-106); Potassium 3.4 mmol/L (3.5-5.1); Sodium 139 mmol/L (136-145)
[2020-06-25] MEDS: Docusate Sodium 100 MG CAP PO ×2 (08:24→19:47)
[2020-06-25] MEDS: Polyethylene Glycol 3350 17 GM PACKET PO (08:24)
--- NOTE | 2020-06-25 10:07 | NUR.NOTE ---
Spoke with Daughter on phone regarding concerns about patient's new onset distrust in plan of care in addition to her resistance to taking pain medication of any sort. post conversation, this law writer sat with patient and discussed her hesitations about pain medicine and wearing the bipap mask over night. patient states All I know is what I have been told at night if I don't wear the Mask I will . Further teaching was provided about purpose of wearing the bipap mask even for short intervals and the reason behind taking pain medication prior to participating in therapy. Patient states, I am not in pain when I move it feels more like a pulled muscle when I am pulled on, I am more stiff than anything. This law writer explained further that the medicine, even tylenol is used to prevent pain before its starts. Patient states that she will consider more on it but does not want pain medicine at this time.
--- NOTE | 2020-06-25 12:59 | W.PM.PROGNOT ---
Date of Service Date of service: 06/25/20 Time of Service: 09:25 Assessment and Plan Assessment and plan (1) Pneumonia: Status: Acute Assessment and plan: No WBC elevation. Procal was 1.4 On Cefepime. (2) Rutdc-nf-bykigha kidney injury: Status: Acute Assessment and plan: Improving; creatinine now 2.56 Unknown baseline. Chronic CKD d/t multiple myeloma Qualifiers: Acute renal failure type: unspecified Chronic kidney disease stage: stage 4 (severe) Qualified Code(s): N17.9 - Acute kidney failure, unspecified; N18.4 - Chronic kidney disease, stage 4 (severe) (3) Decubitus ulcer of coccygeal region: Status: Acute Assessment and plan: Cont woun care / skin care Qualifiers: Pressure injury stage: stage 1 Qualified Code(s): L89.151 - Pressure ulcer of sacral region, stage 1 (4) Anemia: Status: Chronic Assessment and plan: Improving. Hgb now 7.8 D/T multiple myeloma. Monitor. Qualifiers: Anemia type: unspecified type Qualified Code(s): D64.9 - Anemia, unspecified (5) Multiple myeloma: Status: Acute Assessment and plan: She wishes to longer pursue any w/u or potential treatments. Qualifiers: Multiple myeloma remission status: not in remission Qualified Code(s): C90.00 - Multiple myeloma not having achieved remission Subjective Subjective Patient reports: feels better, tolerating a regular diet and afebrile; denies bowel movement, nausea and vomiting Exam Const General: cooperative, no acute distress and frail appearing Nutritional Appearance: overweight Orientation: alert and oriented x3 Resp Effort & Inspection: normal respiratory effort Auscultation: diminished lung sounds and rales Cardio Rate: regular rate Rhythm: regular rhythm Heart Sounds: S1 normal and S2 normal GI Palpation: soft and nontender Auscultation: normal bowel sounds Skin General skin exam: no rashes or lesions noted Extrem General: no calf tenderness and edema Laterality: bilateral (tr) Objective Last Vital Signs Temp 36.5 C 06/25/20 11:52 Pulse 77 06/25/20 04:15 Resp 11 L 06/25/20 04:15 BP 115/53 L 06/25/20 04:15 Pulse Ox 96 06/25/20 07:30 Laboratory Results - last 24 hr 06/25/20 06/25/20 06:50 06:50 WBC 3.66 L RBC 2.77 L Hgb 7.8 L Hct 25.9 L MCV 93.5 MCH 28.2 MCHC 30.1 L RDW 20.1 H Plt Count 142 MPV 8.9 Immature Gran % 0.8 Neutrophils % 63.4 Lymphocytes % 17.8 Monocytes % 15.8 Eosinophils % 2.2 Basophils % 0.0 Nucleated RBC % 0 Absolute Neutrophils 2.32 Absolute Lymphocytes 0.65 L Absolute Monocytes 0.58 Absolute Eosinophils 0.08 Absolute Basophils 0.00 Sodium 139 Potassium 3.4 L Chloride 109 H Carbon Dioxide 24.1 Anion Gap 5.9 BUN 58 H Creatinine 2.56 H Estimated GFR/1.73 m2 17.94 Glucose 97 Calcium 8.0 L
--- NOTE | 2020-06-25 14:02 | CHAPLAIN ---
I visited with Meghana for the first time today. She was sitting up in a chair wanted to get back into bed, but said PT staff was coming back in a few minutes to work with her again, and then she'd like to go back to bed. Meghana said it's been difficult to be in touch with family. I will continue to visit.
--- NOTE | 2020-06-25 14:28 | PDOC.CMPRO ---
- If Service Date Differs Date of service: 06/25/20 Time of Service: 14:28 Care Management Progress Note S/O: Meghana remains ICU level of care, his condition continues to remain guarded. will be into see her again this afternoon. CM did attempt to talk with Meghana over the phone last evening she struggled with shortness of breath while on the phone. [facility] her for admission on Monday, Meghana did accept the bed offer pending how well she does the rest of this week. Please keep her daughter up to date she is helping with the decision making. Goals of care to be addressed again this afternoon. CM to continue to assess. Unsure at this point if she will need a BIPAP at time of discharge if so this would need to be obtained by the facility prior to her admission. CM will contact RT to determine if this will be the plan. A: Meghana was admitted to [facility] on 06/19/20 for Severe Anemia, TRACY and CKD and Multiple Myeloma P: Meghana met with palliative care to discuss goals of care this evening; she has accepted the bed offer from [facility]. Transportation pending disposition. Shantelle Kowalski.s daughter contact number is [phone] to be kept up to date with the discharge plan. CM to coordinate transportation pending disposition.
--- NOTE | 2020-06-25 15:33 | PT.INTREAT ---
Date of service: 06/25/20 Time of Service: 11:50 PT Notes Visit Reasons: SEVERE ANEMIA, TRACY ON CKD, MM Inpatient Physical Therapy Treatment Note [facility] Date: 06/25/2020 PRECAUTIONS: Fall SUBJECTIVE: Meghana states that she is feeling very tired today, she does not really feel like participating in PT, or getting out of bed today. She has eventually agreeable to short distance ambulation and some exercises. OBJECTIVE: PAIN: Patient c/o pain in tailbone area while seated at EOB BED MOBILITY/TRANSFERS Supine-sit: Min a with HOB at 50 degrees Sit-supine: CGA with HOB flat Sit-stand: CGA in a.m.; min a in p.m. Stand-sit: SBA requiring verbal cueing for safety Bed-Chair: CGA Chair-bed: CGA-SBA GAIT Assistive Device: FWW Weight bearing: Full Assist: CGA Distance: 15' in a.m.; 25' in p.m. Deviation: C/o increased fatigue/weakness THEREX: Patient was instructed in several LE strengthening exercises, in a seated position, as per flow sheet. ASSESSMENT: Patient tolerated session with complaint of increased fatigue and weakness with activity. She was able to tolerate a progression in gait distance with FWW support and CGA. She would benefit from continued global strengthening as well as gait and transfer training for improved mobility and activity tolerance PLAN: Continue with strengthening, transfer and gait training for improved mobility and activity tolerance. TREATMENT CODE/TIME: Session 1: 25 minutes; 57257 x2 Section 2: 30 minutes; 64662 x2
[2020-06-25] MEDS: CEFEPIME 1 GM in Normal Saline 50 ML IVPB (16:54)
[2020-06-25] MEDS: Pantoprazole 40 MG VIAL IVP (16:55)
[2020-06-25] MEDS: Normal Saline Flush 10 ML SYR IVP (16:56)
[2020-06-25] MEDS: Timolol 0.5% 5 ML BTL OU (19:45)
[2020-06-25] MEDS: Senna TAB 1 TAB PO (19:46)
--- NOTE | 2020-06-25 20:37 | PCPN_ITS ---
Date of service: 06/25/20 Time of Service: 20:38 Assessment and Plan Assessment and plan (1) Pulmonary edema: Status: Acute (2) Shortness of breath: Status: Acute (3) Pneumonia: Status: Acute (4) Edzya-nc-zalrffc kidney injury: Status: Acute Qualifiers: Acute renal failure type: unspecified Chronic kidney disease stage: stage 4 (severe) Qualified Code(s): N17.9 - Acute kidney failure, unspecified; N18.4 - Chronic kidney disease, stage 4 (severe) (5) Palliative care patient: Status: Acute Assessment and plan: Overall doing much much better. She still has a ways to go. Renal insufficiency?improving Anemia improving Strength improving Mental status?I am actually more concerned about her mental status today. She was saying things that were a bit bizarre. She also talked about needing to stay around long enough so that she can write me an apology note(I am not really certain why she said this) Hopefully she will continue with the steady improvement and to be able to go to a rehab center sometime in the near future Her family has definitely been helpful in making her room cheery as well as the nursing station Subjective Subjective Interval history since last seen: Meghana states that she is doing much much better. She did not take the morphine stating that she is strong. She does not need the morphine. She was able to get out of bed and walk 3 to 4 feet to a nearby chair. This was with assist. Her ICU room is decorated with [place] decorations. She has a new manager quality systems mechanical cat by her side Meghana is feeling enthused and hopeful that she will be able to return home. She still understands that she will need to do a stay in rehab to get stronger. Exam Narrative Exam Narrative: Laboratory Tests 06/27/20 06/27/20 06:10 06:10 WBC 4.28 L Hgb 7.7 L Hct 25.5 L Potassium 3.2 L BUN 48 H Creatinine 1.81 H Exam(s) a RAD:XR portable chest AP EXAM: XR PORTABLE CHEST AP CLINICAL HISTORY: CHF, questionable pneumonia TECHNIQUE: 2D digital imaging was performed. COMPARISON: CR,XR XR PORTABLE CHEST AP from 06/21/2020 FINDINGS: MEDIASTINUM: Normal. HEART: Normal. PULMONARY VASCULATURE: Normal. LUNGS: Though there are persistent bilateral infiltrates, there has been slight improvement in the lungs compared to 06/21/2020. PLEURAL SPACE: No pleural effusion or pneumothorax. BONE:Within normal limits for the patient's age. OTHER FINDINGS:Normal. IMPRESSION: Slight improvement in the infiltrates of the lungs since 06/21/2020. She is sitting in her bed. She can still only say 3-4 word sentences without taking a breath. She is not as short of breath as she was a few days ago. Heart distant, murmur Lungs diminished sounds no wheezing Lower extremity some edema In general much more comfortable today than what she was when I saw her on Monday Objective Last Vital Signs Temp 97.7 F 06/25/20 16:45 Pulse 86 06/25/20 11:54 Resp 18 06/25/20 11:54 BP 138/69 06/25/20 11:54 Pulse Ox 95 06/25/20 14:00 Laboratory Results - last 24 hr 06/25/20 06/25/20 06:50 06:50 WBC 3.66 L RBC 2.77 L Hgb 7.8 L Hct 25.9 L MCV 93.5 MCH 28.2 MCHC 30.1 L RDW 20.1 H Plt Count 142 MPV 8.9 Immature Gran % 0.8 Neutrophils % 63.4 Lymphocytes % 17.8 Monocytes % 15.8 Eosinophils % 2.2 Basophils % 0.0 Nucleated RBC % 0 Absolute Neutrophils 2.32 Absolute Lymphocytes 0.65 L Absolute Monocytes 0.58 Absolute Eosinophils 0.08 Absolute Basophils 0.00 Sodium 139 Potassium 3.4 L Chloride 109 H Carbon Dioxide 24.1 Anion Gap 5.9 BUN 58 H Creatinine 2.56 H Estimated GFR/1.73 m2 17.94 Glucose 97 Calcium 8.0 L
[2020-06-26] VITALS (20 sets, daily range): BP systolic 113–139; BP diastolic 45–68; PULSE 78–100; RESP 15–25; TEMP 36.3–37.1; O2SAT 92–96
[2020-06-26 07:18] LABS: Anion Gap 4.1 mmol/L (3-11); BUN 53 mg/dL (7-18); CO2 25.9 mmol/L (21.0-32.0); CREATININE 2.14 mg/dL (0.55-1.02); Calcium 8.1 mg/dL (8.5-10.1); Chloride 108 mmol/L (98-107); Estimated GFR 22.06 (mL/min/1.73m2); Glucose 114 mg/dL (74-106); Potassium 3.3 mmol/L (3.5-5.1); Sodium 138 mmol/L (136-145)
[2020-06-26] MEDS: Furosemide 40 MG/4 ML VIAL IVP (08:59)
[2020-06-26] MEDS: Normal Saline Flush 10 ML SYR IVP ×3 (08:59→19:48)
[2020-06-26] MEDS: Timolol 0.5% 5 ML BTL OU ×3 (09:00→19:49)
--- NOTE | 2020-06-26 12:36 | CMPROGNOTE_ITS ---
- If Service Date Differs Date of service: 06/26/20 Time of Service: 12:36 Care Management Progress Note S/O: Meghana was talking with food services coordinator when CM met with her. After she was done selecting her lunch, CM had a discussion with her about her care at [facility]. She stated that she is being well taken care of. She was not overly talkative, but did agree with the plan for her to go to [facility] on Monday, as long as she is medically ready to transfer. CM spoke to PT, who stated that she initially did not want to work with PT today, but they were able to encourage her to walk, which she did. PT stated that she is doing well with her improvement and progress toward goals, but she is still recommended to go to rehab prior to returning home. Per report, she will be re swabbed for Covid 19 this weekend in preparation for admission to [facility]. CM will continue to follow. A: Meghana was admitted to [facility] on 06/19/20 for Severe Anemia, TRACY and CKD and Multiple Myeloma. P: Meghana met with palliative care to discuss goals of care. She has accepted the bed offer from [facility]. Transportation pending disposition. Shantelle Kowalski.s daughter contact number is [phone] to be kept up to date with the discharge plan. CM to coordinate transportation pending disposition.
--- NOTE | 2020-06-26 12:39 | W.PM.PROGNOT ---
Date of Service Date of service: 06/26/20 Time of Service: 09:11 Assessment and Plan Assessment and plan (1) Multiple myeloma: Status: Acute Assessment and plan: Pt with no desire to pursue further w/u or treatment Qualifiers: Multiple myeloma remission status: not in remission Qualified Code(s): C90.00 - Multiple myeloma not having achieved remission (2) Hhepx-lf-kiuputn kidney injury: Status: Acute Assessment and plan: Renal function continues to improve. Creatinine now 2.14 Cont to avoid hypotension and nephrotoxins Qualifiers: Acute renal failure type: unspecified Chronic kidney disease stage: stage 4 (severe) Qualified Code(s): N17.9 - Acute kidney failure, unspecified; N18.4 - Chronic kidney disease, stage 4 (severe) (3) Pneumonia: Status: Acute Assessment and plan: Day 5/7 of cefepime. Clinically improving respiratory status. WBC count is low but not neutropenic. (4) Pulmonary edema: Status: Acute Assessment and plan: Secondary to volume overload after 4 RBC transfusions. Now on 40mg IV lasix daily. Consider changing to oral. CXR in AM Echocardiogram considered, but deciding on whether this will assist in her care. She is palliative and wants minimal interventions. (5) Anemia: Status: Chronic Assessment and plan: Related to multiple myeloma. Improving. Iron level 458 on 06/19/2020. B12 normal in May. Qualifiers: Anemia type: unspecified type Qualified Code(s): D64.9 - Anemia, unspecified (6) Discharge planning issues: Status: Acute Assessment and plan: Patient is agreeable to SNF. She has considerable weakness from deconditioned state that pre-dates this hospitalization. Working well with PT/OT and progressing. Subjective Subjective Patient reports: feels better, tolerating a regular diet, no bowel movement and afebrile; denies blood in stool, nausea and vomiting Exam Const General: cooperative and no acute distress Nutritional Appearance: overweight Orientation: alert and oriented x3 Eyes Sclera: sclerae normal Pupils: PERRL Resp Effort & Inspection: normal respiratory effort Auscultation: clear to auscultation bilaterally and diminished lung sounds Cardio Rate: regular rate Rhythm: regular rhythm Heart Sounds: S1 normal, S2 normal and murmur GI Palpation: soft and nontender Auscultation: normal bowel sounds Neuro General: moves all extremities and no focal motor deficits Speech: speech normal Extrem General: no calf tenderness and pedal edema bilaterally non-pitting Objective Last Vital Signs Temp 36.4 C L 06/26/20 05:55 Pulse 91 H 06/26/20 11:20 Resp 24 06/26/20 11:20 BP 126/57 L 06/26/20 11:20 Pulse Ox 92 06/26/20 05:55 Laboratory Results - last 24 hr 06/26/20 06:35 Sodium 138 Potassium 3.3 L Chloride 108 H Carbon Dioxide 25.9 Anion Gap 4.1 BUN 53 H Creatinine 2.14 H Estimated GFR/1.73 m2 22.06 Glucose 114 H Calcium 8.1 L
--- NOTE | 2020-06-26 15:37 | PTTR_ITS ---
Date of service: 06/26/20 Time of Service: 09:15 PT Notes Visit Reasons: SEVERE ANEMIA, TRACY ON CKD, MM Inpatient Physical Therapy Treatment Note [facility] Date: 06/26/2020 PRECAUTIONS: Fall SUBJECTIVE: Meghana continues to report significant fatigue. She requires significant encouragement to participate in PT sessions today. She reports that she feels out of control while being in the hospital. OBJECTIVE: PAIN: Patient c/o pain in tailbone area while seated at EOB BED MOBILITY/TRANSFERS Supine-sit: SBA with HOB at 20-40 degrees Sit-supine: CGA with HOB flat Sit-stand: Min A in a.m.; CGA in p.m. Stand-sit: SBA requiring verbal cueing for safety GAIT Assistive Device: FWW Weight bearing: Full Assist: SBA in a.m.; CGA in p.m. Distance: 40' in a.m.; 80' in p.m. Deviation: C/o increased fatigue/weakness THEREX: Patient was instructed in several LE strengthening exercises, in a seat ed position, as per flow sheet. ASSESSMENT: Patient tolerated session with complaint of increased fatigue and weakness with activity. She was able to tolerate a progression in gait distance with FWW support and SBA. She would benefit from continued global strengthening as well as gait and transfer training for improved mobility and activity tolerance PLAN: Continue with strengthening, transfer and gait training for improved mobility and activity tolerance. TREATMENT CODE/TIME: Session 1: 35 minutes; 34820, 33420 Section 2: 30 minutes; 66272 x2
[2020-06-26] MEDS: Pantoprazole 40 MG VIAL IVP (15:56)
[2020-06-26] MEDS: CEFEPIME 1 GM in Normal Saline 50 ML IVPB (15:57)
--- NOTE | 2020-06-26 16:41 | WOUNDCONS ---
- If Service Date Differs Date of service: 06/26/20 Time of Service: 16:41 Wound Initial Evaluation Narrative: This is a follow up to the wound consult that was done on the . Patient is an 80 yof that was admitted with weakness increased pain in the sacrum, and acute anemia. On exam patient was found to have 2 stage 2 PI. The wound team was asked to consult. Noted today. while the wounds length and width are roughly the same, the wound beds have filled in to where they are nearly flush with the surface. Patient was found to have the pressure to her sacrum offloaded. Continue to encourage patient and staff to continue to do so. Recommend continuing same treatment for 1 more week. - Wound Left Lumbar/Sacral Wound Type: Pressure Ulcer, Partial Thickness Pressure Ulcer Stage: II Wound Bed Greatest Portion: Red (Granulation) Wound Surrounding Tissue Appearance: Normal/Healthy Percent of Wound Bed Granulated/Red: 100 Wound Length: 0.4 cm Wound Width: 0.7 cm Wound Depth: 0.1 cm (less than) Wound Drainage Amount: None Wound Drainage Description: No drainage Wound Topical Solution/Irrigant: Saline Irrigant Wound Debridement Method: Mechanical Wound Debridement Result: Healthy Tissue Revealed Wound Debridement Amount of Tissue Removed: None Right Lumbar/Sacral Wound Type: Pressure Ulcer, Partial Thickness Wound General Appearance: Healing Well Wound Bed Greatest Portion: Red (Granulation) Wound Surrounding Tissue Appearance: Normal/Healthy Percent of Wound Bed Granulated/Red: 100 Wound Length: 0.3 cm Wound Width: 0.5 cm Wound Depth: 0.1 cm (less than) Wound Drainage Amount: None Wound Drainage Odor: None/Absent Wound Drainage Description: No drainage Wound Topical Solution/Irrigant: Saline Irrigant Wound Debridement Method: Mechanical Wound Debridement Result: Healthy Tissue Revealed Wound Debridement Amount of Tissue Removed: None - Treatment/Dressing Change Cleanse With: Saline Dressing Types: Mepilex w/Border - Recomendation Recomendation:: Cleanse with normal saline, then pat dry. Apply Mepilex sacral over wounds for protection. Change every 3 days or PRN if soiled. Measure wound with dressing change. Offload pressure from sacral coccyx area. Physcian/Nurse Practioner Notified: Yes () Treatment Time - Time Total Time Spent with Patient: 15 - Patient Will be Seen Weekly Treatment: 3x/wk - For: For:: 1 week
[2020-06-27] VITALS (8 sets, daily range): BP systolic 120–143; BP diastolic 62–73; PULSE 77–83; RESP 16–20; TEMP 36.2–37; O2SAT 90–98
--- NOTE | 2020-06-27 | DI.RAD_ITS ---
EXAM: XR PORTABLE CHEST AP CLINICAL HISTORY: follow up PNA. TECHNIQUE: 2D digital imaging was performed. COMPARISON: CR XR PORTABLE CHEST AP from 06/24/2020 FINDINGS: Heart size is unchanged in the mediastinum is not widened. Slightly better inspiratory effort when compared to 3 days ago. The amount of infiltrate in the lung bases has decreased but not resolved. Small bilateral pleural effusions are still evident. Pulmonary venous hypertension pattern again noted. Subtle suggestion of air subjacent to the right hemidiaphragm. Correlation with any interval abdomin al surgery recommended. IMPRESSION: As above. Recommend nonportable PA and lateral views when clinically possible. Possible free air dooley bjacent to the right hemidiaphragm. Findings discussed with hospital 06/27/2020 DATA REPOSITORY: RADIATION DOSE DELIVERED:
--- NOTE | 2020-06-27 | DI.RAD_ITS ---
EXAM: XR CHEST 2V PA LATERAL CLINICAL HISTORY: atelectasis vs pneumonia, ?free air. TECHNIQUE: 2D digital imaging was performed. COMPARISON: CR,XR XR PORTABLE CHEST AP from 06/27/2020 FINDINGS: Heart size unchanged. Mediastinum unchanged. There is persistent infiltrate in the right lung base and a [id number]-[id number] right pleural effusi on is noted. There is no air subjacent to the hemidiaphragm, as seen on this study (was of possible concern on the prior portable AP view performed earlier today). Left lung base infiltrate is mostly cleared. There is a small left pleural effusion. Pulmonary veno us hypertension pattern again noted. IMPRESSION: Lung findings as above.This repeat nonportable study does not reveal evidence of free air subjacent t o the right hemidiaphragm. Report called by myself to the floor Monday06/27/2020 at 5:20 p.m. DATA REPOSITORY: RADIATION DOSE DELIVERED:
[2020-06-27 06:35] LABS: Abs Immature Grans 0.03 10^3/uL (0.0-0.06); Absolute Basophil Count 0.01 10^3/uL (0.0-0.2); Absolute Eosinophil Count 0.05 10^3/uL (0.0-0.7); Absolute Monocyte Count 0.63 10^3/uL (0.1-0.8); Absolute Neutrophil Count 2.66 10^3/uL (1.2-6.7); Basophils % 0.2; Eosinophils % 1.2; HCT 25.5 % (36.0-46.0); HGB 7.7 g/dL (11.2-15.7); Immature Grans % 0.7; MCH 28.1 pg (27.0-33.0); MCHC 30.2 % (32.0-36.0); MCV 93.1 fL (80-95); MPV 8.4 fL (8.0-11.0); Monocytes % 14.7; Neutrophils % 62.2; Nucleated RBC 0 %; Platelet Count 141 10^3/uL (130-400); RBC 2.74 10^6/uL (3.93-5.22); RDW 19.9 % (11.7-14.6); RDW-SD 66.3 fL; WBC 4.28 10^3/uL (4.4-10.8)
[2020-06-27 06:49] LABS: Anion Gap 2.4 mmol/L (3-11); BUN 48 mg/dL (7-18); CO2 27.6 mmol/L (21.0-32.0); CREATININE 1.81 mg/dL (0.55-1.02); Calcium 8.3 mg/dL (8.5-10.1); Chloride 109 mmol/L (98-107); Estimated GFR 26.77 (mL/min/1.73m2); Glucose 115 mg/dL (74-106); Magnesium 1.7 mg/dL (1.8-2.4); Potassium 3.2 mmol/L (3.5-5.1); Sodium 139 mmol/L (136-145)
[2020-06-27] MEDS: Timolol 0.5% 5 ML BTL OU ×2 (08:14→19:47)
[2020-06-27] MEDS: Normal Saline Flush 10 ML SYR IVP ×2 (08:15→16:39)
[2020-06-27] MEDS: Potassium Chloride 20 MEQ TABCR 40 MEQ PO (08:39)
[2020-06-27] MEDS: Furosemide 40 MG/4 ML VIAL IVP (10:26)
[2020-06-27] MEDS: MAGNESIUM SULFATE 2 GM/50 ML BAG IVPB (10:27)
--- NOTE | 2020-06-27 11:32 | CMPROGNOTE_ITS ---
Care Management Progress Note S/O: Meghana remains agreeable to going to [facility] on Monday, as long as she is medically ready to transfer. She continues to work with PT who stated that she is doing well with her improvement and progress toward goals. CM requested re- swab for Covid 19 in preparation for admission to [facility]. CM continues to follow. A: Meghana was admitted to [facility] on 06/19/20 for Severe Anemia, TRACY and CKD and Multiple Myeloma. P: Meghana has accepted bed offer from [facility], anticipate she will transfer on Monday with continued medical stability. Meghana Pepper's daughter ([phone]) will be kept up to date with discharge considerations. Anticipate she will transfer via the facility's W/C van.
--- NOTE | 2020-06-27 11:32 | PDOC.CMPRO ---
Care Management Progress Note S/O: Meghana remains agreeable to going to [facility] on Monday, as long as she is medically ready to transfer. She continues to work with PT who stated that she is doing well with her improvement and progress toward goals. CM requested re-swab for Covid 19 in preparation for admission to [facility]. CM continues to follow. A: Meghana was admitted to [facility] on 06/19/20 for Severe Anemia, TRACY and CKD and Multiple Myeloma. P: Meghana has accepted bed offer from [facility], anticipate she will transfer on Monday with continued medical stability. Meghana Pepper's daughter ([phone]) will be kept up to date with discharge considerations. Anticipate she will transfer via the facility's W/C van.
--- NOTE | 2020-06-27 12:34 | PT.INTREAT ---
Date of service: 06/27/20 Time of Service: 12:00 PT Notes Visit Reasons: SEVERE ANEMIA, TRACY ON CKD, MM Inpatient Physical Therapy Treatment Note [facility] Date: 06/27/2020 PRECAUTIONS: Standard / fall SUBJECTIVE: Stated she has had a terrible night. Did not get much sleep and has had issues with getting a IV line in place this morning. Very frustrated and refusing to get up to walk. Did agree to sit on edge of bed to eat her lunch. Nursing staff was informed to patient request and agreed this would be okay. Patient did visit with Dr. Arguello while I was in room and she explained her frustration with her as well. OBJECTIVE: PAIN: Complained she did not like to sit in recliner chair. Indicated it hurts her tail bone. BED MOBILITY/TRANSFERS Supine-sit: Required slight assist with going supine to sitting on edge of bed, with bed reclined at approximately 40 degrees. Patient was left sitting up on edge of bed to eat her lunch, as discussed with nursing staff. Refused ambulation today due to being tired and having a rough morning with IV application. THEREX: Only willing to do ankle pumps 10 reps x 2 today. ASSESSMENT: Difficult time convincing patient to participate in any activity today due to complaints, as indicated above. Appeared very frustrated. PLAN: Continue with current POC with focus on improved functional mobility and increased strength with bilateral LEs. TREATMENT CODE/TIME: 20024c8, (20') 12:00 to 12:20
--- NOTE | 2020-06-27 13:08 | W.PM.PROGNOT ---
Date of Service Date of service: 06/27/20 Time of Service: 13:08 Assessment and Plan Assessment and plan (1) Confusion: Status: Acute Assessment and plan: I see this being mentioned in Dr Hernandez's notes as well. Given the presence of a boswell catheter, I think a UTI needs to be ruled out. We will obtain a UA/C&s. (2) Pneumonia: Status: Acute Assessment and plan: Day 6/7 of cefepime. CXR better though the patient reports a new sputum today. Will monitor this, but for now plan to finish antibiotics tomorrow. (3) Vrzsz-ut-erochjw kidney injury: Status: Acute Assessment and plan: Improving. Change lasix to PO. Continue to avoid hypotension and nephrotoxins. Replete K and magnesium. Qualifiers: Acute renal failure type: unspecified Chronic kidney disease stage: stage 4 (severe) Qualified Code(s): N17.9 - Acute kidney failure, unspecified; N18.4 - Chronic kidney disease, stage 4 (severe) (4) Anemia: Status: Chronic Assessment and plan: S/p transfusion of 4 units of pRBCs on this admission. Likely related to multiple myeloma. Given overall goals of care, no further workup. No indication for transfusion today - Hgb 7.7. Qualifiers: Anemia type: unspecified type Qualified Code(s): D64.9 - Anemia, unspecified (5) Pulmonary edema: Status: Acute Assessment and plan: As above - PO lasix starting tomorrow. CXR better. Defer Echocardiogram as it would not change treatment plan. 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 The patient has been meeting with palliative care and is not willing to pursue further w/u or treatment. Focus on palliative care. Qualifiers: Multiple myeloma remission status: not in remission Qualified Code(s): C90.00 - Multiple myeloma not having achieved remission (7) Discharge planning issues: Status: Acute Assessment and plan: DNR/DNI [facility]. Subjective Subjective Interval history since last seen: Ms Dorman states that she is feeling short of breath and that her cough is productive of yellow sputum today, which is new to her. Denies dizziness, chest pain, nausea. She is feeling tired. She states that she is feeling so tired today because all last night they kept measuring me for my casket. When asked, who is they?, she answered: Your boss, the lady and Claudio, the nurse. She could not tell me the name of the lady. She does not definitively answer whether or not the lady might be a palliative care doctor. I did reassure her that she was not being measured for a casket, but I am not sure that Ms Dorman believed me. Exam Narrative Exam Narrative: General: Pleasant, but somewhat confused elderly female, A&Ox3, looks tired HEENT: EOMI, MMM Heart: RRR, no m/r/g Lungs: coarse breath sounds B Abdomen: soft, nontender, nondistended Extremities: no e/c/c BLE's Objective Last Vital Signs Temp 36.8 C 06/27/20 11:36 Pulse 83 06/27/20 11:36 Resp 19 06/27/20 11:36 BP 133/70 06/27/20 11:36 Pulse Ox 95 06/27/20 11:36 Laboratory Results - last 24 hr 06/27/20 06/27/20 06:10 06:10 WBC 4.28 L RBC 2.74 L Hgb 7.7 L Hct 25.5 L MCV 93.1 MCH 28.1 MCHC 30.2 L RDW 19.9 H Plt Count 141 MPV 8.4 Immature Gran % 0.7 Neutrophils % 62.2 Lymphocytes % 21.0 Monocytes % 14.7 Eosinophils % 1.2 Basophils % 0.2 Nucleated RBC % 0 Absolute Neutrophils 2.66 Absolute Lymphocytes 0.90 L Absolute Monocytes 0.63 Absolute Eosinophils 0.05 Absolute Basophils 0.01 Sodium 139 Potassium 3.2 L Chloride 109 H Carbon Dioxide 27.6 Anion Gap 2.4 L BUN 48 H Creatinine 1.81 H Estimated GFR/1.73 m2 26.77 Glucose 115 H Calcium 8.3 L Magnesium 1.7 L Objective Narrative Objective Narrative: CXR: mproved inflation with decreased atelectasis, also with evidence of resolved mild pulmonary edema. Suspected small bilateral pleural effusions are considered unchanged and there is decreased but persistent infiltrate, also likely persistent atelectasis, in right lower lobe and right middle lobe. This appears mildly improved.
--- NOTE | 2020-06-27 13:19 | DI.VRAD_ITS ---
PROCEDURE INFORMATION: Exam: XR Chest, 1 View Exam date and time: 06/27/2020 12:51 PM Age: 80 years old Clinical indication: Other: Follow up pna TECHNIQUE: Imaging protocol: XR of the chest Views: 1 view. COMPARISON: CR XR PORTABLE CHEST AP 06/24/2020 2:50 PM FINDINGS: Lungs: Decreased overall lung density. Lung inflation is improved and there is decreased opacification in right lower lobe and right middle lobe region though not resolved. Pleural space: Accounting for improved inflation, bilateral costophrenic angle blunting is considered stable. Heart/Mediastinum: Normal heart and cardiomediastinal silhouette. Vasculature: Vessel caliber and vascular pedicle with is decreased. Bones/joints: The bones are intact. IMPRESSION: Improved inflation with decreased atelectasis, also with evidence of resolved mild pulmonary edema. Suspected small bilateral pleural effusions are considered unchanged and there is decreased but persistent infiltrate, also likely persistent atelectasis, in right lower lobe and right middle lobe. This appears mildly improved. Dictated and Authenticated by: Jose Goldberg MD. Ordering:NAHOMY Rios MD
[2020-06-27 15:44] LABS: Bilirubin Negative (Negative); Blood Small (Negative); Clarity Clear (Clear); Glucose Negative (Negative); Ketones Negative (Negative); Leukocyte Esterase Negative (Negative); Nitrite Negative (Negative); Urobilinogen 0.2 EU/dL (Up TO 0.2)
[2020-06-27 15:56] LABS: Bacteria Negative HPF (Negative); Epithelial Cells Negative HPF (Negative); Other Cells Negative (Negative); RBC 0-2 HPF (0-2); WBC 0-2 HPF (0-5)
[2020-06-27 15:58] LABS: C & S Indicated? C&S Done As Ordered; Casts 10-20 Hyaline LPF (Negative); Crystals Few Amorphous HPF (Negative); Mucus Negative (Negative)
[2020-06-27] MEDS: Pantoprazole 40 MG VIAL IVP (16:39)
[2020-06-27] MEDS: CEFEPIME 1 GM in Normal Saline 50 ML IVPB (16:39)
[2020-06-27] MEDS: Docusate Sodium 100 MG CAP PO (19:47)
[2020-06-27] MEDS: Senna TAB 1 TAB PO (19:47)
[2020-06-28 03:20] VITALS: BP 138/66; PULSE 73; RESP 17; TEMP 36.5; O2SAT 94
[2020-06-28 06:40] LABS: HGB 7.8 g/dL (11.2-15.7)
--- NOTE | 2020-06-28 06:42 | NUR.NOTE ---
Nursing Note: Pt was very confused. 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 SKIMMER told RN that the patient was looking for the dragon lady named Brittany and that she will lose her power soon. RN asked the pt is she wants a sleeping medication and she states that she slept good and she doesnt need it but the pt was awake most of the night. Before the end of the shift shes asking for a cabinet and an organizer to fix her things by the window. She also wants the RN to throw the plant that her daughter gave her saying its ugly with all the stones and that maybe her daughter wants to bury her with the stones from the plants RN told the pt that her daughter cares for her so much and pt replied maybe its a message from her that she wants to bury me with a lot of stones
[2020-06-28 06:48] LABS: Anion Gap 1.2 mmol/L (3-11); BUN 44 mg/dL (7-18); CO2 28.8 mmol/L (21.0-32.0); CREATININE 1.84 mg/dL (0.55-1.02); Calcium 8.3 mg/dL (8.5-10.1); Chloride 107 mmol/L (98-107); Estimated GFR 26.26 (mL/min/1.73m2); Glucose 118 mg/dL (74-106); Magnesium 2.2 mg/dL (1.8-2.4); Potassium 3.4 mmol/L (3.5-5.1); Sodium 137 mmol/L (136-145)
[2020-06-28 07:57] VITALS: PULSE 80
[2020-06-28 08:02] VITALS: BP 153/72; PULSE 78; RESP 18; TEMP 36.4; O2SAT 93
[2020-06-28] MEDS: Furosemide 40 MG TAB PO (08:22)
[2020-06-28] MEDS: Timolol 0.5% 5 ML BTL OU ×2 (08:22→20:12)
[2020-06-28] MEDS: Potassium Chloride 20 MEQ TABCR 40 MEQ PO (08:22)
[2020-06-28] MEDS: Polyethylene Glycol 3350 17 GM PACKET PO ×2 (08:23→16:19)
--- NOTE | 2020-06-28 11:03 | W.PM.PROGNOT ---
Date of Service Date of service: 06/28/20 Time of Service: 11:04 Assessment and Plan Assessment and plan (1) Confusion: Status: Acute Assessment and plan: I see this being mentioned in Dr Hernandez's notes as well. I think we need to work on relieving constipation. UTI/worsening pneumonia ruled out. (2) Pneumonia: Status: Acute Assessment and plan: Day 7/7 of cefepime. CXR better. Finish antibiotics today. (3) Fodvd-jg-ohfvnts kidney injury: Status: Acute Assessment and plan: Improving. Continue PO lasix. Continue to avoid hypotension and nephrotoxins. Replete K. Qualifiers: Acute renal failure type: unspecified Chronic kidney disease stage: stage 4 (severe) Qualified Code(s): N17.9 - Acute kidney failure, unspecified; N18.4 - Chronic kidney disease, stage 4 (severe) (4) Anemia: Status: Chronic Assessment and plan: S/p transfusion of 4 units of pRBCs on this admission. Likely related to multiple myeloma. Given overall goals of care, no further workup. No indication for transfusion today. Qualifiers: Anemia type: unspecified type Qualified Code(s): D64.9 - Anemia, unspecified (5) Pulmonary edema: Status: Acute Assessment and plan: As above - transitioned to PO lasix. Monitor daily weights/I/O's. Defer Echocardiogram as it would not change treatment plan. (6) Constipation: Status: Acute Assessment and plan: intensify bowel regimen. May be contributing to confusion. 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 The patient has been meeting with palliative care and is not willing to pursue further w/u or treatment. Focus on palliative care. Qualifiers: Multiple myeloma remission status: not in remission Qualified Code(s): C90.00 - Multiple myeloma not having achieved remission (8) Discharge planning issues: Status: Acute Assessment and plan: DNR/DNI Plan [facility]. Subjective Subjective Interval history since last seen: Ms Dorman has worked with PT this morning already and is generally having a better day today than she did yesterday. She endorses feeling constipated and states that she has not had a BM since 2 days before coming to the hospital. Per nursing, up until this morning, she had been refusing to take bowel meds, but did agree to miralax today. She agrees to take more than that with me. Denies dizziness, chest pain, shortness of breath, nausea. Exam Narrative Exam Narrative: General: Pleasant elderly female, who does appear more energetic today than yesterday, still says some odd things (that doughnut had been stepped on - there is no evidence on the doughnut that someone stepped on it).A&Ox3, knows Aparna is president elect, but cannot remember Sola's name though she can describe him to me. HEENT: EOMI, MMM Heart: RRR, no m/r/g Lungs: coarse breath sounds B Abdomen: soft, distended/rotund, nontender Extremities: no e/c/c BLE's Objective Last Vital Signs Temp 36.4 C L 06/28/20 08:02 Pulse 78 06/28/20 08:02 Resp 18 06/28/20 08:02 BP 153/72 H 06/28/20 08:02 Pulse Ox 93 06/28/20 08:02 Laboratory Results - last 24 hr 06/27/20 06/28/20 06/28/20 15:00 06:10 06:10 Hgb 7.8 L Hct 26.0 L Sodium 137 Potassium 3.4 L Chloride 107 Carbon Dioxide 28.8 Anion Gap 1.2 L BUN 44 H Creatinine 1.84 H Estimated GFR/1.73 m2 26.26 Glucose 118 H Calcium 8.3 L Magnesium 2.2 Urine Color Yellow Urine Clarity Clear Urine pH 6.0 Ur Specific [place] 1.020 Urine Protein 30 H Urine Ketones Negative Urine Blood Small H Urine Nitrite Negative Urine Bilirubin Negative Urine Urobilinogen 0.2 Ur Leukocyte Esterase Negative Urine RBC 0-2 Urine WBC 0-2 Ur Epithelial Cells Negative Urine Crystals Few amorphous Urine Bacteria Negative Urine Casts 10-20 hyaline Urine Mucus Negative Urine Other Negative Ur Culture Indicated? C&s done as ordered Urine Glucose Negative
[2020-06-28 11:10] VITALS: BP 146/69; PULSE 80; RESP 20; TEMP 37; O2SAT 93
[2020-06-28] MEDS: Bisacodyl 5 MG TABEC 10 MG PO (11:24)
[2020-06-28] MEDS: Docusate Sodium 100 MG CAP PO ×2 (11:24→20:12)
[2020-06-28] MEDS: Senna TAB 1 TAB PO ×2 (11:24→20:12)
--- NOTE | 2020-06-28 11:30 | CMPROGNOTE_ITS ---
Care Management Progress Note S/O: Meghana remains agreeable to going to [facility] on Monday, as long as she is medically ready to transfer. She continues to work with PT who stated that she is doing well with her improvement and progress toward goals. CM requested re- swab for Covid 19 in preparation for admission to [facility]. CM continues to follow. A: Meghana was admitted to [facility] on 06/19/20 for Severe Anemia, TRACY and CKD and Multiple Myeloma. P: Meghana has accepted bed offer from [facility], anticipate she will transfer on Monday with continued medical stability. Meghana Pepper's daughter ([phone]) will be kept up to date with discharge considerations. Anticipate she will transfer via the facility's W/C van.
--- NOTE | 2020-06-28 11:30 | PDOC.CMPRO ---
Care Management Progress Note S/O: Meghana remains agreeable to going to [facility] on Monday, as long as she is medically ready to transfer. She continues to work with PT who stated that she is doing well with her improvement and progress toward goals. CM requested re-swab for Covid 19 in preparation for admission to [facility]. CM continues to follow. A: Meghana was admitted to [facility] on 06/19/20 for Severe Anemia, TRACY and CKD and Multiple Myeloma. P: Meghana has accepted bed offer from [facility], anticipate she will transfer on Monday with continued medical stability. Meghana Pepper's daughter ([phone]) will be kept up to date with discharge considerations. Anticipate she will transfer via the facility's W/C van.
--- NOTE | 2020-06-28 12:25 | PT.INTREAT ---
Date of service: 06/28/20 Time of Service: 10:00 PT Notes Visit Reasons: SEVERE ANEMIA, TRACY ON CKD, MM Inpatient Physical Therapy Treatment Note [facility] Date: 06/28/2020 PRECAUTIONS: Standard, Fall SUBJECTIVE: Stated she is willing to try walking today, but not too far. Wants to be able to go home someday. OBJECTIVE: PAIN: No complaints of pain offered today. BED MOBILITY/TRANSFERS Rolling L/R: Rolled to the left to get out of bed independently. Supine-sit: Required CGA with HOB at approximately 30 degrees today. Stuck in a hole in the bed and needed assist to slide herself forward. Sit-stand: CGA Stand-sit: CGA GAIT Assistive Device: FWW Weight bearing: Full Assist: CGA of 2 Distance: 30 ft THEREX: Performed ankle pumps and SAQs x 20 reps each while in recliner. ASSESSMENT: Tolerated today's session fair. Appeared more willing to participate in ambulation today. PLAN: Continue to focus on improved functional mobility. TREATMENT CODE/TIME: 33700 x 2, (30') 10:00 to 10:30 am
[2020-06-28 15:36] VITALS: BP 144/69; PULSE 85; RESP 17; TEMP 36.8; O2SAT 93
[2020-06-28] MEDS: Normal Saline Flush 10 ML SYR IVP (16:19)
[2020-06-28] MEDS: Pantoprazole 40 MG VIAL IVP (16:19)
[2020-06-28] MEDS: CEFEPIME 1 GM in Normal Saline 50 ML IVPB (16:20)
--- NOTE | 2020-06-28 17:26 | NUR.NOTE ---
Nursing Note: 06/28/2020 17:27 Patient has repeatedly told authoring nurse about stories of people measuring her bed at night, people wanting her to , and about being buried with rocks by her sister. Nurse continues to reinforce with patient that the bed she is in does capture her weight and that we are here to help her. Nurse reassured patient that the maynard sent for her do have rocks in the base, and that her family seems to care about her very much and send many nice cards. Patient seems to be preoccupied with thoughts of . Patient has not reported any pain to nurse, reporting that she has some muscle tightness with repositioning but no pain. Patient was educated by this nurse about the medications she has available for pain and for constipation, patient verbalized understanding. Patient accepted bowel medications today after education and encouragement. Patient has displayed a more energetic and positive attitude today than yesterday, patient got out of bed and sat in chair, opened gifts and cards from family, and performed exercises in bed that were recommended by physical therapy. Nurse will continue to monitor. Authoring nurse spoke on the phone with Shantelle, who called the med-surg floor, about how Meghana seemed to be doing today for which Shantelle seemed appreciative.
[2020-06-28 19:29] VITALS: BP 126/55; PULSE 86; RESP 18; TEMP 36; O2SAT 91
[2020-06-28 22:39] LABS: COVID-19 RT-PCR UVMMC Result Negative (Negative)
[2020-06-29 00:01] VITALS: BP 134/75; PULSE 80; RESP 18; TEMP 36.5; O2SAT 92
[2020-06-29 03:32] VITALS: BP 126/69; PULSE 79; RESP 18; TEMP 36.4; O2SAT 93
[2020-06-29 07:22] LABS: Abs Immature Grans 0.04 10^3/uL (0.0-0.06); Absolute Basophil Count 0.01 10^3/uL (0.0-0.2); Absolute Eosinophil Count 0.05 10^3/uL (0.0-0.7); Absolute Lymphocyte Count 1.01 10^3/uL (1.2-3.4); Absolute Monocyte Count 0.54 10^3/uL (0.1-0.8); Absolute Neutrophil Count 3.26 10^3/uL (1.2-6.7); Basophils % 0.2; HCT 26.1 % (36.0-46.0); Immature Grans % 0.8; Lymphocytes % 20.6; MCH 28.4 pg (27.0-33.0); MCHC 30.7 % (32.0-36.0); MCV 92.6 fL (80-95); MPV 8.4 fL (8.0-11.0); Neutrophils % 66.4; Nucleated RBC 0 %; Platelet Count 155 10^3/uL (130-400); RBC 2.82 10^6/uL (3.93-5.22); RDW 19.4 % (11.7-14.6); RDW-SD 65.7 fL; WBC 4.91 10^3/uL (4.4-10.8)
[2020-06-29 07:27] LABS: Anion Gap 0.9 mmol/L (3-11); BUN 43 mg/dL (7-18); CO2 30.1 mmol/L (21.0-32.0); CREATININE 1.87 mg/dL (0.55-1.02); Calcium 8.2 mg/dL (8.5-10.1); Chloride 106 mmol/L (98-107); Estimated GFR 25.78 (mL/min/1.73m2); Glucose 104 mg/dL (74-106); Magnesium 2.1 mg/dL (1.8-2.4); Potassium 3.4 mmol/L (3.5-5.1); Sodium 137 mmol/L (136-145)
[2020-06-29] MEDS: Timolol 0.5% 5 ML BTL OU (08:05)
[2020-06-29] MEDS: Senna TAB 1 TAB PO (08:05)
[2020-06-29] MEDS: Furosemide 40 MG TAB PO (08:05)
[2020-06-29] MEDS: Polyethylene Glycol 3350 17 GM PACKET PO (08:05)
[2020-06-29] MEDS: Docusate Sodium 100 MG CAP PO (08:05)
[2020-06-29 08:11] VITALS: BP 161/67; PULSE 85; RESP 18; TEMP 36.7; O2SAT 94
--- NOTE | 2020-06-29 09:20 | PT.INDS ---
Date of service: 06/29/20 Time of Service: 09:20 PT Notes Visit Reasons: SEVERE ANEMIA, TRACY ON CKD, MM Inpatient Physical Therapy Discharge Summary Date: 06/29/2020 Dates of Service: 06/20/2020 through 06/29/2020 Referring Doctor: Chris Corrales MD PT Orders: PT CONSULT: eval and treat Precautions: Fall, standard Patient Profile/Admitting Diagnosis: Patient presented to [facility] ER on 06/19/2020, with complaint of severe coccygeal and tailbone pain and been immobile x2 weeks, bed ridden due to progressive weakness. Medical work-up suggest anemia, post polio syndrome, kidney disease/failure, coccygeal ulcer, and mulitple myoloma. She has become very deconditioned and now non-functional. She has not had medical care for 2 years. PMHX: Medical History (Updated 06/19/20 @ 18:50 by Chris Corrales) Chronic renal insufficiency Essential hypertension Multiple myeloma Surgical History (Updated 06/19/20 @ 18:28 by Chris Corrales) Status post total hysterectomy and bilateral salpingo-oophorectomy Performed at age 28 for allegedly ovarian cancer Social History/Home Situation: Patient reporting that she lives in a private home, with her . She is unclear on the way out of her home. She explains that normally she would need some assist to transfer from her bed to standing a walker, and then she would reside in a chair all day. Approximately 2 weeks ago, her was unable to lift her out of her chair due to her weak condition, she has been bedridden x2 weeks. Subjective: Complained of posterior neck pain which resolved with gentle manual therapy provided by PT. Anxious about result of her blood work as she as not heard from anybody about it yet. looking forward to going back to [facility] before [place]. Objective: General Observation: O2 via nasal cannula 2 L/minute Mental Status: Alert and oriented as to person, lace and time Pain: Posterior neck pain 4-5/10 MANUAL THERAPY: Gentle manual therapy provided to R posterior neck. Sustained pressure on R psoterior neck muscles x 1 minute for 5 reps. ROM: Right Upper Extremity: Actively achieving about 100 degrees of bilateral shoulder flexion and scaption, passively increases to 120 degrees, elbows and wrist digits are WNL Left Upper Extremity: As above Right Lower Extremity: Bilateral hip flexion 100 degrees to 90 degrees, IR 10 degrees at the hip 30 degrees ER at the hips. Ankles are grossly WNL, bilateral hip abduction about 30 degrees Left Lower Extremity: As above Strength: Right Upper Extremity: Grossly 3+/5 throughout Left Upper Extremity: Grossly 3+/5 throughout Right Lower Extremity: Grossly 2/5 throughout, with the exception of quad it 3/5 lacking about 20 degrees of terminal knee extension due to fatigue. Dorsiflexion plantarflexion 3-/5 Left Lower Extremity: As above Sensation: Intact Bed Mobility/Transfers: Sit to stand: SBA Stand to sit: SBA Gait: Up to 125 feet + 125 feet using the 4WW requiring with minimal SOB demonstrated with decreased marina and excessive forward head posture (pre-existing). THERA EX: Instructed with seated level exercises x 15 consisting of LAQs and seated hip flexion with DBE in between each exercises. Balance: Static Sitting: Poor Dynamic Sitting: Poor Static Standing: Poor Dynamic Standing: Poor Assessment: Meghana demonstrates functional mobility improvements with PT services during this episode fof carePatient is a 80 year old female referred to physical therapy services with the diagnosis of anemia in the setting of chronic multiple myeloma, post polio syndrome, unmanaged medical care, coccygeal ulcer, kidney dysfunction. Patient presented with clinical signs and symptoms consistent with referred diagnosis allowing for global weakness and deconditioning limiting her functional capabilities that dependent on another for all bed mobility, transfers, and unable to attempt any type of standing or ambulation due to her severe weakness. Goals: Goals X1 week 1. Supine-Sit close supervision, HOB 30 degrees NOT MET 2. Sit-Supine close supervision NOT MET 3. Sit-Stand min assist x1, RW MET 4. Stand-Sit min assist x1, RW MET 5. Bed-Chair min assist x1, RW MET 6. Chair-Bed min assist x1, RW MET 7. Gait 5 steps, RW, contact-guard MET 8. Independent with home exercise program NOT MET 9. Balance good with static phase, fair with dynamic tasks with FWW for weightbearing activities NOT MET DISCHARGE RECOMMENDATIONS: SNF TREATMENT CODE/TIME: 57624 x 40 minutes, 83615 x 10 minutes beginning at 9:20 AM. Thank you for the opportunity to participate in the care of this patient. Berkley Zuñiga PT, DPT, CLT [facility] [place], [place]
--- NOTE | 2020-06-29 09:25 | W.PM.DS.N ---
Date of service: 06/29/20 Time of Service: 09:26 DS: Diagnosis Discharge Diagnosis (1) Confusion: Status: Acute (2) Pneumonia: Status: Acute (3) [id number] kidney injury: Status: Acute (4) Anemia: Status: Chronic (5) Pulmonary edema: Status: Acute (6) Constipation: Status: Acute (7) Multiple myeloma: Status: Chronic (8) Discharge planning issues: Status: Acute Discharge Plan Disposition Condition: Improving Discharge Details Reason For Visit: SEVERE ANEMIA, TRACY ON CKD, MM Admit Date/Time: 06/19/20 14:58 Admit Provider: Chris Corrales Attending Provider: Chris Corrales Primary Care Provider: Jf Bolanos Hospital Course Hospital Course: 81-year-old female with past medical history significant for actinic keratosis, seborrheic keratosis, hypertension, post polio syndrome in either breast cancer (listed on [facility] problem list) or ovarian cancer (per patient) who also has a 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 She presented to the emergency room according to her because of 3-day history of worsening pain over her tailbone. However also had generalized weakness and difficulty walking preventing her to bedbound for the past week. She had been taken NSAIDs with some improvement in her pain. Exam in the emergency department showed soft brown stool that was faintly guaiac positive. Laboratory work-up showed that she was in acute renal failure and severely anemic. CMP demonstrated elevated BUN of 71 and creatinine of 4.0 and an elevated potassium of 5.7. Calcium level is normal at 8.1. Magnesium high at 2.6. Her anion gap is normal at 8.9. LFTs were within normal limits. Troponin was less than 0.05. Her total protein was high at 11.9 with a low albumin of 2.3. CBC demonstrated profound anemia with a hemoglobin of 3.7 g and hematocrit 12.7%. Her MCV was elevated at 96.9 with an RDW 22.8. Platelet count was normal at 139,000. WBCs were mildly depressed at at 4200. CT imaging of her chest abdomen pelvis without contrast demonstrated small right pleural effusion and questionable right lower lobe pneumonia versus atelectasis. She has a distended gallbladder with questionable thickening of her gallbladder wall. She has severe diverticulosis without diverticulitis. She had no mediastinal or hilar adenopathy. She has mild coronary artery calcifications with no aortic aneurysm. Bones appear to be osteoporotic and she has multiple mid to lower thoracic compression fractures as well as moderate compression fracture L1 and L3 that appear to be old. Bones of the pelvis appear to be osteoporotic but no acute spinal or pelvic fractures were seen. Reproductive organs show she is status post hysterectomy. She did receive 2 units PRBC in the ED and was admitted to ICU for further management Over course of treatment new multiple myleoma was found in which she did not want to received treatment;requiring another 2 units PRBC the day after admission, she was found to be volume overloaded post transfusions and initiated on lasix drip due to renal function. The drip was discontinued due to poor diureses and IVP boluses started. CXR did reveal significant bilateral pulmonary edema. She was initiated on cefepime finishing a total 7 day course. Palliative met with patient while in ICU and she agreed that she did not want aggressive measures, she also stated she did not want HD if needed. After initiation of antibx respiratory status improved. Creatinine improved. Her h/h was monitored and stable not requiring any further transfusions. She did require a boswell catheter due to urinary retention from constipation. She was placed on aggressive bowel regimen with positive outcome, negative guaic stool. IV lasix was changed to PO, potassium and magnesium were both repleted and she has been stable working with PT therefore she is being discharged to H/R for further rehabilitation. She denies CP, SOB, N/V/D. Home Meds and New Rx's Prescriptions: New furosemide 40 mg Tablet 40 mg PO DAILY Qty: 14 RF: 0 bisacodyl 10 mg Suppository 10 mg NM BID PRN PRN (Reason: Constipation) Qty: 7 RF: 0 docusate sodium [Colace] 100 mg Capsule 100 mg PO BID Qty: 30 RF: 0 pantoprazole [Protonix] 40 mg tablet,delayed release (DR/EC) 40 mg PO DAILY Qty: 30 RF: 0 tramadol 50 mg Tablet 25 mg PO Q12H PRN PRN (Reason: Pain) Qty: 10 RF: 0 potassium chloride [Klor-Con M20] 20 mEq Tablet,Er Particles/Crystals 20 meq PO DAILY Qty: 14 RF: 0 No Action ibuprofen [Motrin] 100 mg Tablet 600 mg PO PRN PRNRF: 0 Discharge Instructions Instructions: Constipation (DC), Anemia (DC) Additional Instructions: Transfer to health and rehab Activity:: Activity as Tolerated Activity:: Activity as Tolerated Equipment/Supplies:: No Equipment Needed Diet:: As Tolerated DS: Summary Status at Discharge Functional status at discharge: uses cane/walker Overall status at discharge: patient is progressing back to baseline Mental Status: mental status grossly normal Speech and Movement: speech and movement normal Mood: congruent mood Affect: normal affect Exam Narrative Exam Narrative: General: Pleasant elderly female, who does appear more energetic today than yesterday, she is on the phone with her daughter A&Ox3, jeri Braun is president elect, HEENT: EOMI, MMM Heart: RRR, no m/r/g Lungs: coarse breath sounds B Abdomen: soft, distended/rotund, nontender Extremities: no e/c/c BLE's Eyes General: appearance normal, both eyes and all related structures Sclera: sclerae normal Pupils: PERRL Neck Neck: full ROM and no JVD Resp Effort & Inspection: normal respiratory effort, able to speak in complete sentences and labored Auscultation: clear to auscultation bilaterally, diminished lung sounds and rales Cardio Rate: regular rate Rhythm: regular rhythm Heart Sounds: S1 normal, S2 normal and murmur GI Palpation: soft and nontender Auscultation: normal bowel sounds Skin General skin exam: no rashes or lesions noted, atrophy and ecchymosis Lesions: lesion noted (coccyx; Mepilex in place) Neuro General: moves all extremities and no focal motor deficits Speech: speech normal Extrem General: no pedal edema, no calf tenderness, edema Laterality: bilateral (tr) and pedal edema bilaterally non-pitting Psych Mental Status: mental status grossly normal Speech and Movement: speech and movement normal Mood: congruent mood Affect: normal affect Attitude: cooperative DS: Data Vitals/I&O Vitals and I&O: Vital Signs Temperature 36.7 C 06/29/20 08:11 Temperature Source Tympanic 06/29/20 08:11 Pulse 85 06/29/20 08:11 Pulse Rhythm Regular 06/29/20 02:38 Pulse 89 06/26/20 16:00 Respiratory Rate 18 06/29/20 08:11 Respiratory Effort Non-Labored 06/29/20 02:38 Respiratory Depth Normal 06/29/20 02:38 Respiratory Pattern Normal 06/29/20 02:38 Blood Pressure 161/67 H 06/29/20 08:11 Blood Pressure Mean 77 06/26/20 16:00 Blood Pressure Position Supine 06/26/20 05:55 Pulse Oximetry 94 06/29/20 08:11 Oxygen Delivery Method Nasal Cannula 06/29/20 08:11 Oxygen Flow Rate 2 06/29/20 03:32 Fraction of Inspired Oxygen (FIO2) 27 06/24/20 16:59 Pain Level 0 06/29/20 03:32 Comment 06/22/20 01:45 Intake & Output 06/28/20 06/28/20 06/29/20 11:59 23:59 11:59 Intake Total 910 / 910 200 / 200 Output Total 350 / 1075 725 / 1075 300 / 300 Balance -350 / -165 185 / -165 -100 / -100 Weight 73.7 kg 71.5 kg Intake: Oral 910 / 910 200 / 200 Output: Urine 350 / 1075 725 / 1075 300 / 300 Other: Urine Color Yellow Pale Yellow Yellow Urine Appearance Clear Clear Clear Stool Size Large Stool Characteristics Formed Brown Data Completed and Pending Completed studies during hospitalization [Text1]: The exam is limited by respiratory motion. CHEST: Thyroid: Unremarkable Tracheobronchial tree: Patent where visualized. Mediastinum and Madhuri: No dominant adenopathy or fluid collection. Pulmonary parenchyma: There are increased densities at the right lung base suspicious for pneumonia. Pleura: No pneumothorax. Small right pleural effusion. Lymph nodes: Within normal limits. Heart: Dilated. Mild coronary artery calcifications. Mild aortic calcification. No aortic aneurysm. Bones: The bones appear osteoporotic. There are multiple mid to lower thoracic compression fractures. ABDOMEN: Liver: Normal density. No measurable mass. Gallbladder and biliary tract: The gallbladder appears somewhat distended and there is a question of wall thickening. No radiodense calculus or biliary dilation. Pancreas: Normal density, no abnormal calcifications or inflammatory process. Spleen: Normal. Kidneys: Normal size, contour and axis. No radiodense stones or obstructive uropathy. Bilateral cysts. No perinephric collection. No suspicious masses seen. Adrenal glands: No masses seen. Aorta: Abdominal portion non-dilated. Lymph nodes: Within normal limits. PELVIS: Bladder: Nearly empty and not well evaluated. Bowel: Extensive diverticulosis. No evidence of diverticulitis. Normal quantity of stool. Normal-appearing appendix. No obstruction or bowel wall thickening. Peritoneal cavity: Small amount of fluid is seen in the pelvis. Bones: Bones appear osteoporotic. Moderate compression fracture of L1. Mild compression fracture of L3, both of which appear old. No acute spine or pelvic fractures are seen. Reproductive organs: Status post hysterectomy. IMPRESSION: Small right pleural effusion. Question of right lower lobe pneumonia versus significant atelectasis. Exam(s) a RAD:XR portable chest AP EXAM: XR PORTABLE CHEST AP CLINICAL HISTORY: SOA TECHNIQUE: 2D digital imaging was performed. COMPARISON: CT CT CHEST/ABD/PEL WO from 06/19/[address] CHEST/ABD/PEL WO from 06/19/2020 FINDINGS: MEDIASTINUM: Normal. HEART: Normal. PULMONARY VASCULATURE: Normal. LUNGS: When compared to the CT scan from 06/19/2020, there does appear to be a progression of the bilateral pulmonary infiltrates. PLEURAL SPACE: No pleural effusion or pneumothorax. BONE:Within normal limits for the patient's age. OTHER FINDINGS:There is poor inspiration. There is elevation of the right hemidiaphragm. IMPRESSION: Progressive bilateral pulmonary infiltrates. This may represent worsening pneumonia. Interstitial edema cannot be excluded. Please correlate clinically. TECHNIQUE: Imaging protocol: XR of the chest Views: 1 view. Other technique: Portable exam. COMPARISON: CT CHEST/ABD/PEL WO 06/19/2020 1:17 PM FINDINGS: Lungs: There are coarse bilateral increased parenchymal markings particularly at the right mid and lower lung level with moderate left lower lobe involvement. The pulmonary vascularity appears redistributed. Pleural space: Probable small bilateral pleural effusions. Heart/Mediastinum: Heart size upper limits of normal. Bones/joints: Unremarkable. IMPRESSION: 1. Probable degree of congestive heart failure. 2. Concern for bibasilar consolidation right worse than left. TECHNIQUE: 2D digital imaging was performed. COMPARISON: CR,XR XR PORTABLE CHEST AP from 06/21/2020 FINDINGS: MEDIASTINUM: Normal. HEART: Normal. PULMONARY VASCULATURE: Normal. LUNGS: Though there are persistent bilateral infiltrates, there has been slight improvement in the lungs compared to 06/21/2020. PLEURAL SPACE: No pleural effusion or pneumothorax. BONE:Within normal limits for the patient's age. OTHER FINDINGS:Normal. IMPRESSION: Slight improvement in the infiltrates of the lungs since 06/21/2020. Exam(s) a RAD:XR portable chest AP EXAM: XR PORTABLE CHEST AP CLINICAL HISTORY: follow up PNA. TECHNIQUE: 2D digital imaging was performed. COMPARISON: CR XR PORTABLE CHEST AP from 06/24/2020 FINDINGS: Heart size is unchanged in the mediastinum is not widened. Slightly better inspiratory effort when compared to 3 days ago. The amount of infiltrate in the lung bases has decreased but not resolved. Small bilateral pleural effusions are still evident. Pulmonary venous hypertension pattern again noted. Subtle suggestion of air subjacent to the right hemidiaphragm. Correlation with any interval abdominal surgery recommended. IMPRESSION: As above. Recommend nonportable PA and lateral views when clinically possible. Possible free air subjacent to the right hemidiaphragm. Exam(s) a RAD:XR chest 2V PA & lateral EXAM: XR CHEST 2V PA LATERAL CLINICAL HISTORY: atelectasis vs pneumonia, ?free air. TECHNIQUE: 2D digital imaging was performed. COMPARISON: CR,XR XR PORTABLE CHEST AP from 06/27/2020 FINDINGS: Heart size unchanged. Mediastinum unchanged. There is persistent infiltrate in the right lung base and a [id number] right pleural effusion is noted. There is no air subjacent to the hemidiaphragm, as seen on this study (was of possible concern on the prior portable AP view performed earlier today). Left lung base infiltrate is mostly cleared. There is a small left pleural effusion. Pulmonary venous hypertension pattern again noted. IMPRESSION: Lung findings as above.This repeat nonportable study does not reveal evidence of free air subjacent to the right hemidiaphragm. COMPARISON: CR XR PORTABLE CHEST AP 06/24/2020 2:50 PM FINDINGS: Lungs: Decreased overall lung density. Lung inflation is improved and there is decreased opacification in right lower lobe and right middle lobe region though not resolved. Pleural space: Accounting for improved inflation, bilateral costophrenic angle blunting is considered stable. Heart/Mediastinum: Normal heart and cardiomediastinal silhouette. Vasculature: Vessel caliber and vascular pedicle with is decreased. Bones/joints: The bones are intact. IMPRESSION: Improved inflation with decreased atelectasis, also with evidence of resolved mild pulmonary edema. Suspected small bilateral pleural effusions are considered unchanged and there is decreased but persistent infiltrate, also likely persistent atelectasis, in right lower lobe and right middle lobe. This appears mildly improved. Labs on day of discharge: Labs from last 24 hours 06/29/20 06/29/20 06/27/20 06:50 06:25 13:35 WBC 4.91 RBC 2.82 L Hgb 8.0 L Hct 26.1 L MCV 92.6 MCH 28.4 MCHC 30.7 L RDW 19.4 H Plt Count 155 MPV 8.4 Immature Gran % 0.8 Neutrophils % 66.4 Lymphocytes % 20.6 Monocytes % 11.0 Eosinophils % 1.0 Basophils % 0.2 Nucleated RBC % 0 Absolute Neutrophils 3.26 Absolute Lymphocytes 1.01 L Absolute Monocytes 0.54 Absolute Eosinophils 0.05 Absolute Basophils 0.01 Sodium 137 Potassium 3.4 L Chloride 106 Carbon Dioxide 30.1 Anion Gap 0.9 L BUN 43 H Creatinine 1.87 H Estimated GFR/1.73 m2 25.78 Glucose 104 Calcium 8.2 L Magnesium 2.1 SARS-CoV-2 (PCR) Negative Nasopharyn COVID-19 PCR Not Applicable Ref Test Perform Site [facility] lab [facility] Medical History (Updated 06/28/20 @ 11:07 by Blanca Arguello MD) Chronic renal insufficiency Essential hypertension Multiple myeloma Surgical History (Updated 06/19/20 @ 18:28 by Chris Corrales) Status post total hysterectomy and bilateral salpingo-oophorectomy Performed at age 28 for allegedly ovarian cancer Social History Smoking/Tobacco Use Status: Never Smoking risk assessment performed?: Yes Alcohol Intake: never Drug use: Never Do you feel safe at home: Yes Do you feel safe in your relationship?: Yes
[2020-06-29] MEDS: Potassium Chloride 20 MEQ TABCR 40 MEQ PO (10:04)
[2020-06-29 11:06] VITALS: BP 113/67; PULSE 83; RESP 17; TEMP 37.3; O2SAT 93
--- NOTE | 2020-06-29 12:44 | NUR.NOTE ---
called report to [facility] Nursing Note:
--- NOTE | 2020-06-29 15:06 | CMDISCH_ITS ---
- If Service Date Differs Date of service: 06/29/20 Time of Service: 15:06 LACE Index Scoring Tool - Questions: Length of Stay (in days): 7 - 13 Acuity (Admit via E.D.?): Yes Comorbidities: Liver or Renal Disease E.D. Visits: 1 - Answers: Total Score: 14 Risk of Readmission: High Risk Care Management Discharge Reason for Hospitalization: Severe Anemia, TRACY and CKD and Multiple Myoloma Discharge Plan: Meghana will transition to [facility] nursing [facility] re[facility] for short term rehab today prior to returning home. She will transport via [facility] facility w/c van. She will follow up with her PCP and discharge plan of care. CM called her daugther, Shantelle, at her request, to inform her of the update. She is agreeable to going to rehab. Patient/Family Education Needs: Review discharge instructions regarding activity levels and medications, discussion of self care needs including ask me three and goals of care. Services Needed at Discharge: Senior Living Facility ([facility]), Transportation (w/c van)
== END 2020-06-29 13:05 | disposition skilled nursing facility (03) | DRG 682 ==
LOC: ER 15:53 → ICU 15:58 → MS 06-26 16:27
PROVIDERS: Family Medicine; Internal Medicine; Admitting Provider Internal Medicine; Emergency Provider Emergency Medicine; PCP Internal Medicine; Visit Provider Internal Medicine
DX: N17.9 Acute kidney failure, unspecified (principal); J18.9 Pneumonia, unspecified organism; J81.0 Acute pulmonary edema; J98.11 Atelectasis; C90.00 Multiple myeloma not having achieved remission; K92.1 Melena; M80.88XA Other osteoporosis with current pathological fracture, vertebra(e), initial encounter for fracture; D50.0 Iron deficiency anemia secondary to blood loss (chronic); N18.4 Chronic kidney disease, stage 4 (severe); G14 Postpolio syndrome; E86.0 Dehydration; K57.30 Diverticulosis of large intestine without perforation or abscess without bleeding; M81.0 Age-related osteoporosis without current pathological fracture; I25.10 Atherosclerotic heart disease of native coronary artery without angina pectoris; I12.9 Hypertensive chronic kidney disease with stage 1 through stage 4 chronic kidney disease, or unspecified chronic kidney disease; Z85.43 Personal history of malignant neoplasm of ovary; K59.00 Constipation, unspecified; Z66 Do not resuscitate; E87.71 Transfusion associated circulatory overload; L89.152 Pressure ulcer of sacral region, stage 2; R41.0 Disorientation, unspecified
CPT/HCPCS: 36415; 36430; 51701; 71250; 80048; 80053; 82805; 84145; 84156; 84166; 86335; 86850; 86900; 86901; 86920; 87040; 93005; 96361; 96374; 97110; 97163; 97530; 99223; 99232; 99233; 99239; 99255; 99285; U0003; 36600; 71045; 71046; 74176; 81003; 81015; 82232; 82570; 82607; 82728; 82746; 83540; 83615; 83735; 84155; 84165; 84484; 84550; 85014; 85018; 85025; 86320; 87086; 93010; 94660; J1940; J2060; P9016

== ENCOUNTER 2020-07-03 16:27 | Outpatient (REF) | payer MEDICARE, BC, SELFPAY ==
[2020-07-08 13:36] LABS: COVID-19 RT-PCR Result Not Detected ((See Note))
== END 2020-07-03 16:47 ==
LOC: LBN 16:27
PROVIDERS: PCP Internal Medicine; Visit Provider Nurse Practitioner Adult Health
DX: Z11.59 Encounter for screening for other viral diseases (principal)
CPT/HCPCS: U0003

== ENCOUNTER → 2020-07-06 15:57 | Outpatient (REF) | payer SELFPAY ==
[2020-07-06 16:37] LABS: Abs Immature Grans 0.03 10^3/uL (0.0-0.06); Absolute Basophil Count 0.02 10^3/uL (0.0-0.2); Absolute Eosinophil Count 0.05 10^3/uL (0.0-0.7); Absolute Lymphocyte Count 0.79 10^3/uL (1.2-3.4); Absolute Monocyte Count 0.47 10^3/uL (0.1-0.8); Absolute Neutrophil Count 1.81 10^3/uL (1.2-6.7); Basophils % 0.6; Eosinophils % 1.6; HCT 27.6 % (36.0-46.0); HGB 8.3 g/dL (11.2-15.7); Immature Grans % 0.9; Lymphocytes % 24.9; MCHC 30.1 % (32.0-36.0); MCV 93.2 fL (80-95); MPV 9.2 fL (8.0-11.0); Monocytes % 14.8; Neutrophils % 57.2; Nucleated RBC 0 %; Platelet Count 191 10^3/uL (130-400); RDW 20.1 % (11.7-14.6); RDW-SD 67.7 fL; WBC 3.17 10^3/uL (4.4-10.8)
[2020-07-06 17:12] LABS: Anisocytosis 1+; Diff Comment RBC Morph Reviewed; RBC 2.96 10^6/uL (3.93-5.22)
== END ==
LOC: LBN 15:57
PROVIDERS: PCP Internal Medicine; Visit Provider Nurse Practitioner Adult Health
DX: D63.1 Anemia in chronic kidney disease (principal); N17.9 Acute kidney failure, unspecified; N18.4 Chronic kidney disease, stage 4 (severe)
CPT/HCPCS: 80053; 85025

== ENCOUNTER → 2020-07-08 15:55 | Outpatient (REF) | payer SELFPAY ==
[2020-07-08 15:35] LABS: ALT 18 U/L (14-59); AST 19 U/L (15-37); Alkaline Phosphatase 85 U/L (46-116); Anion Gap 4.2 mmol/L (3-11); BUN 64 mg/dL (7-18); Bilirubin, Total 0.4 mg/dL (0.2-1.0); CO2 26.8 mmol/L (21.0-32.0); Calcium 8.9 mg/dL (8.5-10.1); Chloride 103 mmol/L (98-107); Estimated GFR 9.86 (mL/min/1.73m2); Glucose 143 mg/dL (74-106); Sodium 134 mmol/L (136-145)
[2020-07-08 16:43] LABS: Total Protein 12.5 g/dL (6.4-8.2)
[2020-07-09 01:26] LABS: COVID-19 RT-PCR UVMMC Result Negative (Negative)
== END ==
LOC: LBN 15:55
PROVIDERS: PCP Internal Medicine; Visit Provider Nurse Practitioner Adult Health
DX: N17.9 Acute kidney failure, unspecified (principal); D63.1 Anemia in chronic kidney disease; C90.00 Multiple myeloma not having achieved remission; I10 Essential (primary) hypertension; Z11.59 Encounter for screening for other viral diseases
CPT/HCPCS: 80053; U0003

== ENCOUNTER 2020-07-09 14:21 | Outpatient (REF) | payer SELFPAY ==
[2020-07-09 15:03] LABS: Abs Immature Grans 0.02 10^3/uL (0.0-0.06); Absolute Basophil Count 0.01 10^3/uL (0.0-0.2); Absolute Eosinophil Count 0.05 10^3/uL (0.0-0.7); Absolute Lymphocyte Count 1.08 10^3/uL (1.2-3.4); Absolute Neutrophil Count 2.65 10^3/uL (1.2-6.7); Basophils % 0.2; Eosinophils % 1.2; HCT 28.5 % (36.0-46.0); HGB 8.2 g/dL (11.2-15.7); Immature Grans % 0.5; Lymphocytes % 25.1; MCH 27.9 pg (27.0-33.0); MCHC 28.8 % (32.0-36.0); MCV 96.9 fL (80-95); Monocytes % 11.6; Neutrophils % 61.4; Nucleated RBC 0 %; Platelet Count 187 10^3/uL (130-400); RBC 2.94 10^6/uL (3.93-5.22); RDW-SD 70.6 fL; WBC 4.31 10^3/uL (4.4-10.8)
[2020-07-09 15:45] LABS: ALT 19 U/L (14-59); AST 20 U/L (15-37); Albumin 2.1 g/dL (3.4-5.0); Alkaline Phosphatase 93 U/L (46-116); Anion Gap 2.6 mmol/L (3-11); BUN 66 mg/dL (7-18); Bilirubin, Total 0.3 mg/dL (0.2-1.0); CO2 28.4 mmol/L (21.0-32.0); Calcium 8.7 mg/dL (8.5-10.1); Chloride 107 mmol/L (98-107); Estimated GFR 10.75 (mL/min/1.73m2); Glucose 97 mg/dL (74-106); Magnesium 2.4 mg/dL (1.8-2.4); Potassium 5.9 mmol/L (3.5-5.1); Sodium 138 mmol/L (136-145)
[2020-07-09 15:52] LABS: CREATININE 3.99 mg/dL (0.55-1.02); Total Protein 12.9 g/dL (6.4-8.2)
[2020-07-09 16:38] LABS: C-Reactive Protein 2.07 mg/dL (0.0-0.3)
[2020-07-10 01:10] LABS: COVID-19 RT-PCR UVMMC Result Negative (Negative)
== END 2020-07-09 14:41 ==
LOC: LBN 14:21
PROVIDERS: PCP Internal Medicine; Visit Provider Nurse Practitioner Adult Health
DX: D63.1 Anemia in chronic kidney disease (principal); N17.9 Acute kidney failure, unspecified; Z11.59 Encounter for screening for other viral diseases
CPT/HCPCS: 80053; U0003; 83735; 85025; 86140

== ENCOUNTER 2020-07-13 19:21 | Outpatient (REF) | payer SELFPAY ==
[2020-07-13 16:42] LABS: Abs Immature Grans 0.05 10^3/uL (0.0-0.06); Absolute Eosinophil Count 0.04 10^3/uL (0.0-0.7); Absolute Lymphocyte Count 0.96 10^3/uL (1.2-3.4); Absolute Monocyte Count 0.43 10^3/uL (0.1-0.8); Eosinophils % 1.2; HCT 25.4 % (36.0-46.0); HGB 7.5 g/dL (11.2-15.7); Immature Grans % 1.5; Lymphocytes % 29.3; MCHC 29.5 % (32.0-36.0); MCV 94.8 fL (80-95); MPV 9.2 fL (8.0-11.0); Monocytes % 13.1; Neutrophils % 54.9; Nucleated RBC 0 %; Platelet Count 172 10^3/uL (130-400); RBC 2.68 10^6/uL (3.93-5.22); RDW 19.8 % (11.7-14.6); RDW-SD 68.7 fL; WBC 3.28 10^3/uL (4.4-10.8)
[2020-07-13 17:29] LABS: Anion Gap 2.4 mmol/L (3-11); BUN 62 mg/dL (7-18); CO2 26.6 mmol/L (21.0-32.0); Calcium 8.7 mg/dL (8.5-10.1); Chloride 104 mmol/L (98-107); Estimated GFR 11.91 (mL/min/1.73m2); Glucose 111 mg/dL (74-106); Potassium 4.8 mmol/L (3.5-5.1); Sodium 133 mmol/L (136-145)
[2020-07-13 18:56] LABS: CREATININE 3.65 mg/dL (0.55-1.02)
== END 2020-07-13 19:41 ==
LOC: LBN 19:21
PROVIDERS: PCP Internal Medicine; Visit Provider Family Medicine
DX: N18.9 Chronic kidney disease, unspecified (principal); D63.1 Anemia in chronic kidney disease; I10 Essential (primary) hypertension; C90.00 Multiple myeloma not having achieved remission; I50.9 Heart failure, unspecified
CPT/HCPCS: 80048; 85025

== ENCOUNTER 2020-07-22 12:42 | Outpatient (REF) | payer SELFPAY ==
[2020-07-22 13:55] LABS: Abs Immature Grans 0.04 10^3/uL (0.0-0.06); Absolute Basophil Count 0.01 10^3/uL (0.0-0.2); Absolute Eosinophil Count 0.04 10^3/uL (0.0-0.7); Absolute Lymphocyte Count 0.71 10^3/uL (1.2-3.4); Basophils % 0.3; Eosinophils % 1.3; Immature Grans % 1.3; Lymphocytes % 23.8; MCH 28.8 pg (27.0-33.0); MCHC 30.9 % (32.0-36.0); MCV 93.2 fL (80-95); Monocytes % 13.4; Nucleated RBC 0 %; Platelet Count 126 10^3/uL (130-400); RBC 2.36 10^6/uL (3.93-5.22); RDW 19.7 % (11.7-14.6); RDW-SD 66.4 fL; WBC 2.98 10^3/uL (4.4-10.8)
[2020-07-22 14:03] LABS: Absolute Neutrophil Count 1.79 10^3/uL (1.2-6.7)
[2020-07-22 14:07] LABS: HGB 6.8 g/dL (11.2-15.7)
[2020-07-22 14:48] LABS: Anisocytosis 1+
[2020-07-22 14:49] LABS: Neutrophils % 59.9
[2020-07-22 14:57] LABS: Anion Gap 6.7 mmol/L (3-11); BUN 52 mg/dL (7-18); CO2 23.3 mmol/L (21.0-32.0); Calcium 8.5 mg/dL (8.5-10.1); Chloride 103 mmol/L (98-107); Estimated GFR 11.37 (mL/min/1.73m2); Glucose 130 mg/dL (74-106); Potassium 5.2 mmol/L (3.5-5.1); Sodium 133 mmol/L (136-145)
== END 2020-07-22 13:02 ==
LOC: LBN 12:42
PROVIDERS: PCP Internal Medicine; Visit Provider Nurse Practitioner Adult Health
DX: N17.9 Acute kidney failure, unspecified (principal); D63.1 Anemia in chronic kidney disease
CPT/HCPCS: 80048; 85025

== ENCOUNTER 2020-07-24 15:41 | Emergency (ER) | payer MEDICARE, BC, SELFPAY ==
[2020-07-24] VITALS (42 sets, daily range): BP systolic 108–135; BP diastolic 56–76; PULSE 97–109; RESP 14–28; TEMP 36.4–36.6; O2SAT 36–98
--- NOTE | 2020-07-24 15:49 | ED.GENADUL_ITS ---
Discharge Plan Disposition Patient Disposition: HOME Condition: Improving Discharge Details Clinical Impression: Anemia, Multiple myeloma Primary Care Provider: Jf Bolanos ED Provider: Finesse Carias Home Meds and New Rx's Prescriptions: Continued ibuprofen 100 mg Tablet 600 mg PO PRN PRNRF: 0 furosemide 40 mg Tablet 40 mg PO DAILY Qty: 14 RF: 0 bisacodyl 10 mg Suppository 10 mg ID BID PRN PRN (Reason: Constipation) Qty: 7 RF: 0 docusate sodium [Colace] 100 mg Capsule 100 mg PO BID Qty: 30 RF: 0 pantoprazole [Protonix] 40 mg tablet,delayed release (DR/EC) 40 mg PO DAILY Qty: 30 RF: 0 tramadol 50 mg Tablet 25 mg PO Q12H PRN PRN (Reason: Pain) Qty: 10 RF: 0 Discontinued potassium chloride [Klor-Con M20] 20 mEq Tablet,Er Particles/Crystals 20 meq PO DAILY Qty: 14 RF: 0 No Action morphine concentrate 100 mg/5 mL (20 mg/mL) solution 5 - 20 mg PO Q1H PRN MDD hospice PRN (Reason: pain or SOB) Qty: 30 RF: 0 lorazepam 1 mg tablet 1 mg PO Q4H PRN MDD hospice PRN (Reason: anxiety or nausea) Qty: 6 RF: 0 Discharge Instructions Instructions: Anemia (ED) Additional Instructions: Your potassium was 5.8 today and was rechecked at 6.0. You were given Kayexalate for this and should stop your supplemental potassium and have a potassium level rechecked in 1 to 2 days. You received 1 unit packed red blood cells. Discharge Data Discharge Date/Time-TO BE ENTERED AT DEPARTURE: 07/24/20 21:00 Medical Decision Making 80-year-old female presents from local rehabilitation facility. She is a palliative care patient who has had recurrent anemia. She was noted to have a hemoglobin of 6.8 on blood draw July 22. The facility was unable to arrange outpatient transfusion and therefore patient transferred to the ER. She is in no distress. She has no other complaints. She has a multiple myeloma which she is not currently treating. She has been in discussions with palliative care regarding hospice. Patient with stable vital signs. She is somewhat disgruntled as she has been told she has to defer discharge to home until oxygen can be provided in her home. IV access established, screening labs obtained and patient consented for 1 unit packed red blood cells. She has known chronic renal insufficiency with a creatinine of 3.9, BUN is 50. These are similar to baseline. There was question of some hemolysis, sodium 133, potassium 5.8, chloride 104, bicarb 25. Repeat potassium obtained at 6.0. Patient has been receiving potassium supplementation 20 mEq/day. She states to me that she wishes to focus on returning to her home and is going to pursue further palliative care conversation. She would not want to be on dialysis. Patient given Kayexalate, we will have her discontinue the potassium supplementation and have her potassium level rechecked. Patient received 1 unit packed red cells, she returned to rehabilitation by ambuance, with anticipated hospice/palliative care. HPI General Mode of arrival: EMS . Date/Time Provider Initiated Documentation: 07/24/20 15:59 . Limitations to Documentation: no limitations . Information obtained by: patient and EMS . History of Present Illness 80 year old F presents to the emergency department with the chief complaint of Anemic, referred for transfusion, described as similar to prior episodes, Patient reports no radiation. Patient started experiencing this unknown No relieving factors improve symptom(s), No exacerbating factors reported . Patient did receive the following treatments prior to arrival, none Related Data Home Medications Medication Instructions Recorded Confirmed ibuprofen 600 mg PO PRN PRN 06/19/20 06/19/20 bisacodyl 10 mg ID BID PRN PRN #7 ea 06/29/20 07/24/20 docusate sodium [Colace] 100 mg PO BID #30 cap 06/29/20 07/24/20 furosemide 40 mg PO DAILY #14 tab 06/29/20 pantoprazole [Protonix] 40 mg PO DAILY #30 tab 06/29/20 tramadol 25 mg PO Q12H PRN PRN #10 tab 06/29/20 lorazepam 1 mg tablet 1 mg PO Q4H PRN PRN #6 tab MDD 07/25/20 hospice morphine concentrate 100 mg/5 mL 5 - 20 mg PO Q1H PRN PRN #30 ml 07/25/20 (20 mg/mL) oral solution [facility] hospice Previous Rx's Medication Instructions Recorded bisacodyl 10 mg ID BID PRN PRN #7 ea 06/29/20 docusate sodium [Colace] 100 mg PO BID #30 cap 06/29/20 furosemide 40 mg PO DAILY #14 tab 06/29/20 pantoprazole [Protonix] 40 mg PO DAILY #30 tab 06/29/20 tramadol 25 mg PO Q12H PRN PRN #10 tab 06/29/20 lorazepam 1 mg tablet 1 mg PO Q4H PRN PRN #6 tab MDD 07/25/20 hospice morphine concentrate 100 mg/5 mL 5 - 20 mg PO Q1H PRN PRN #30 ml 07/25/20 (20 mg/mL) oral solution [facility] Allergies Allergy/AdvReac Type Severity Reaction Status Date / Time adhesive Allergy Verified 07/20/20 11:19 Latex, Natural Rubber Allergy Skin Rash Unverified 07/24/20 15:41 Penicillins Allergy Anaphylaxsi Unverified 07/24/20 17:13 s general anestesia Allergy Anaphylaxsi Uncoded 07/24/20 17:13 s General Stated Complaint: [facility] SHAMIKA: 3 Review of Systems Narrative: 6 systems reviewed and otherwise negative. [facility] Medical History (Updated 07/24/20 @ 19:00 by Finesse Carias MD) Chronic renal insufficiency Essential hypertension Irritability and anger wants to return home frustrated with length of her SNF stay Multiple myeloma does not want treatment, never has likely will be the cause of her , with complications from same Palliative care patient Pancytopenia severe due to multiple myeloma end-stage hospice eligible note that she was sent to ER on 07/24 for 1 unit prbcs to see if this makes her feel better Weakness went to rehab to get stronger, doesn't want to work with PT.OT, feels they ganged up against her, keeping her at SNF against her will talked to both PT and OT staff; they said they were trying to accommodate family request for additional week of rehab age 83 is still working, strong, but needs help too Surgical History Status post total hysterectomy and bilateral salpingo-oophorectomy Performed at age 28 for allegedly ovarian cancer Social History (Updated 07/24/20 @ 16:56 by Lisseth Caro MD) Smoking/Tobacco Use Status: Never Smoking risk assessment performed?: Yes Alcohol Intake: never Drug use: Never Caregiver/Support person: Yes Household members: spouse Housing: house Communication Needs: Corrective Lenses Education Level: college Do you need help understanding health information?: Often Current gender identity: female What is your relationship status?: How often do you talk on the phone with friends or family?: twice per week Panel score (0-1 are the most socially isolated patients): 1 What type of physical activity do you participate in: walking and assisted ambulation Duration: 15-30 minutes/day Frequency: daily Special berhane needs: No Seatbelt use: always Do you feel safe at home: Yes Do you feel safe in your relationship?: Yes Additional Social history: Meghana is TEMPORARILY living at [facility]. She expressed her deep frustration that she is still at Rehab rather than home. She thought her rehab stay would be no longer than 2 weeks. It's been 23 days at time of my visit; she feels her and she promised each other that they would never be left in a SNF. She feels abandoned and angry and lashes out at others--particularly the PT team and her daughter. I spoke to PT and OT. THey report that she has been so angry that she cannot do her exercises. She just wants to go home. She says she will do HH PT and OT. She is frightened that she will never be able to leave. Exam Narrative Exam Narrative: GEN: awake, alert, oriented 3. Pleasant, well groomed, interactive. HEAD: Normocephalic, atraumatic ENT: Mucous membranes moist, oropharynx unremarkable, External ear exam unremarkable EYES: PERRL, EOMI, pale conjunctiva NECK: Full ROM, no JET, no menigismus CHEST/RESP: Nontender, clear to auscultation bilateral, no wheeze/rhonchi/rales CARDIOVASCULAR: Pulse approximately 100 at rest, no murmur, rub porfirio. 2+ Rad p ulse bilateral ABDOMEN: Soft, nontender, no mass. +Bowel sounds EXT: Full ROM, no edema, no rash Neuro: Grossly normal neurologic exam, conversant, interactive. Psych: Speech fluent, thoughts congruent, affect normal Course Vital Signs Vital signs: Vital Signs Temperature 36.6 C 07/24/20 15:38 Pulse 109 H 07/24/20 15:38 Respiratory Rate 18 07/24/20 15:38 Blood Pressure 132/64 07/24/20 15:38 Pulse Oximetry 96 07/24/20 15:38 Temperature 36.6 C 07/24/20 15:38 Temperature Source Skin 07/24/20 15:38 Pulse 109 H 07/24/20 15:38 Respiratory Rate 18 07/24/20 15:38 Respiratory Effort Non-Labored 07/24/20 15:42 Blood Pressure 132/64 07/24/20 15:38 Blood Pressure Position Sitting 07/24/20 15:38 Pulse Oximetry 96 07/24/20 15:38 Oxygen Delivery Method Room Air 07/24/20 15:38 Oxygen Flow Rate 0 07/24/20 15:38 Pain Level 0 07/24/20 15:38 Lab/Test Results Lab/Test Results: Laboratory Tests Range/Units 07/24/20 15:37 Crossmatch See Detail
--- NOTE | 2020-07-24 16:32 | NUR.NOTE ---
electrical laboratory technician at bedside obtaining labs, labs obtained with IV start hemolyzed
--- NOTE | 2020-07-24 16:52 | NUR.NOTE ---
clay processing labourer unable to obtain blood spec x 2 attempts. RN obtained from L [facility] x one attempt. blood band changed
[2020-07-24 16:57] LABS: HGB 7.4 g/dL (11.2-15.7); MCH 28.5 pg (27.0-33.0); MCHC 30.8 % (32.0-36.0); MCV 92.3 fL (80-95); MPV 8.5 fL (8.0-11.0); Platelet Count 121 10^3/uL (130-400); RDW 19.9 % (11.7-14.6); RDW-SD 67.8 fL; WBC 3.39 10^3/uL (4.4-10.8)
[2020-07-24 17:06] LABS: BUN 50 mg/dL (7-18); Calcium 9.1 mg/dL (8.5-10.1); Chloride 104 mmol/L (98-107); Estimated GFR 11.04 (mL/min/1.73m2); Glucose 111 mg/dL (74-106); Potassium 5.8 mmol/L (3.5-5.1); Sodium 133 mmol/L (136-145)
--- NOTE | 2020-07-24 17:59 | NUR.NOTE ---
blood transfusion infusing in R [facility], started at 50mls via pump, increased to 150mls after 15 mins
--- NOTE | 2020-07-24 18:12 | NUR.NOTE ---
error on O2 sat, correction O2 sat 96% RA and tenp 36.4C, tolerating blood transfusion PRBC well. sitting on stretcher, resp even and unlabored
--- NOTE | 2020-07-24 18:29 | NUR.NOTE ---
increased transfusion to 175mls/hr
--- NOTE | 2020-07-24 19:03 | NUR.NOTE ---
report given to RICK Lizama
--- NOTE | 2020-07-24 19:05 | NUR.NOTE ---
drank half Kayexlate and states she cannot tolerate more. notified
== END 2020-07-24 21:00 | disposition home or self-care (01) ==
PROVIDERS: Emergency Provider Emergency Medicine; PCP Internal Medicine
DX: E87.5 Hyperkalemia (principal); D64.9 Anemia, unspecified; C90.00 Multiple myeloma not having achieved remission; I12.9 Hypertensive chronic kidney disease with stage 1 through stage 4 chronic kidney disease, or unspecified chronic kidney disease; N18.9 Chronic kidney disease, unspecified; Z51.5 Encounter for palliative care
CPT/HCPCS: 36415; 36430; 80048; 85027; 86850; 86900; 86901; 86920; 99285; 84132; 99284; P9016